=== PATIENT | female | born 1960 | race African-American/Black ===

== ENCOUNTER → 2017-01-14 | Outpatient (CLI) | payer BC ==
[2017-01-14 09:27] LABS: ABSOLUTE EOSINOPHILS # (AUTO) 0.3 10^3/uL (0.0-0.6); ABSOLUTE LYMPHOCYTES (AUTO) 2.5 10^3/uL (0.5-4.7); ABSOLUTE MONOCYTES (AUTO) 0.4 10^3/uL (0.1-1.4); ABSOLUTE NEUT (AUTO) 3.1 10^3/uL (1.7-8.2); BASOPHILS % (AUTO) 0.7 % (0-2); EOSINOPHILS % (AUTO) 4.8 % (0-6); HEMATOCRIT 36.4 % (36.0-47.0); HGB HCT DIFFERENCE -0.4; LYMPHOCYTES % (AUTO) 39.8 % (13-45); MEAN CORPUSCULAR HEMOGLOBIN 27.5 pg (27.0-33.4); MEAN CORPUSCULAR HGB CONC 33.1 g/dL (32.0-36.0); MEAN CORPUSCULAR VOLUME 83 fl (80-97); MONOCYTES % (AUTO) 5.8 % (3-13); RED BLOOD COUNT 4.38 10^6/uL (3.72-5.28); RED CELL DISTRIBUTION WIDTH 13.8 % (11.5-14.0); SEGMENTED NEUTROPHILS % (AUTO) 48.9 % (42-78); WHITE BLOOD COUNT 6.4 10^3/uL (4.0-10.5)
[2017-01-14 09:52] LABS: ALANINE AMINOTRANSFERASE 24 U/L (9-52); ALBUMIN 4.5 g/dL (3.5-5.0); ALKALINE PHOSPHATASE 97 U/L (38-126); ANION GAP 14 (5-19); ASPARTATE AMINO TRANSFERASE 25 U/L (14-36); BILIRUBIN,TOTAL 0.4 mg/dL (0.2-1.3); BLOOD UREA NITROGEN 20 mg/dL (7-20); CALCIUM 10.1 mg/dL (8.4-10.2); CARBON DIOXIDE 27 mmol/L (22-30); CHLORIDE 100 mmol/L (98-107); CHOLESTEROL 234.04 mg/dL (0-200); CREATININE RESULT 0.79 mg/dL (0.52-1.25); Direct HDL 60 mg/dL (>40); GLUCOSE 91 mg/dL (75-110); POTASSIUM 4.2 mmol/L (3.6-5.0); SODIUM 140.6 mmol/L (137-145); TOTAL PROTEIN 7.8 g/dL (6.3-8.2); TRIGLYCERIDES 102 mg/dL (<150)
[2017-01-14 10:03] LABS: DIRECT LDL 137 mg/dL (<100)
[2017-01-14 10:08] LABS: FREE T3 4.03 pg/mL (2.77-5.27)
[2017-01-14 10:22] LABS: THYROID STIMULATING HORMONE 1.99 uIU/mL (0.47-4.68)
== END ==
LOC: LAB 08:39
PROVIDERS: ATTEND Nurse Practitioner Psychiatric/Mental Health
DX: G62.9 Polyneuropathy, unspecified (principal); R63.4 Abnormal weight loss; I10 Essential (primary) hypertension
CPT/HCPCS: 36415; 80053; 80061; 83036; 84436; 84443; 84481; 85025

== ENCOUNTER 2017-02-10 10:20 | Emergency (ER) | payer BC ==
--- NOTE | 2017-02-10 11:19 | ER Document Report ---
ED Medical Screen (RME) - General Chief Complaint: Chest Pain > 30 Stated Complaint: CHEST PAIN Mode of Arrival: Ambulatory Information source: Patient TRAVEL OUTSIDE OF THE [place] IN LAST 30 DAYS: No - HPI Onset: Other - 2 DAYS Onset/Duration: Sudden Quality of pain: Sharp Severity: Moderate Associated Symptoms: Chest pain, Cough (productive). denies: Chills, Fever Exacerbated by: Coughing, Deep breathing Relieved by: Remaining still Similar symptoms previously: No Recently seen / treated by doctor: No - Related Data Smoking: Cigarettes Frequency of alcohol use: Occasional Drug Abuse: None Allergies/Adverse Reactions: No Known Allergies Allergy (Verified 07/25/16 14:44) Past Medical History - General Information source: Patient - Social History Cigarette use (# per day): Yes Chew tobacco use (# tins/day): No Frequency of alcohol use: None Drug Abuse: None - Past Medical History Cardiac Medical History: Reports: Hx Hypertension Pulmonary Medical History: Reports: Hx COPD Renal/ Medical History: Reports: Hx Kidney Stones. Denies: Hx Peritoneal Dialysis GI Medical History: Reports: Hx Gastroesophageal Reflux Disease Past Surgical History: Reports: Hx Appendectomy, Hx Hysterectomy - Immunizations Hx Diphtheria, Pertussis, Tetanus Vaccination: Yes Review of Systems - Review of Systems Constitutional: No symptoms reported EENT: No symptoms reported Cardiovascular: See HPI Respiratory: See HPI Gastrointestinal: No symptoms reported Genitourinary: No symptoms reported Female Genitourinary: No symptoms reported Musculoskeletal: See HPI Skin: No symptoms reported Neurological/Psychological: No symptoms reported Physical Exam - Vital signs Vitals: Temp Pulse Resp BP Pulse Ox 98.2 F 62 16 102/64 99 02/10/17 10:40 02/10/17 10:40 02/10/17 10:40 02/10/17 10:40 02/10/17 10:40 Interpretation: No: Tachycardic, Hypoxic, Tachypneic, Febrile Course - Vital Signs Vital signs: Temp Pulse Resp BP Pulse Ox 98.2 F 62 16 102/64 99 02/10/17 10:40 02/10/17 10:40 02/10/17 10:40 02/10/17 10:40 02/10/17 10:40
[2017-02-10] MEDS ORDERED: OXYCODONE-ACETAMINOPHEN 5-325 MG TABLET PO ONE (11:21)
[2017-02-10] MEDS ORDERED: ONDANSETRON 4 MG TAB.RAPDIS PO ONE (11:21)
[2017-02-10 12:15] LABS: ABSOLUTE BASOPHILS # (AUTO) 0.1 10^3/uL (0.0-0.2); ABSOLUTE EOSINOPHILS # (AUTO) 0.4 10^3/uL (0.0-0.6); ABSOLUTE LYMPHOCYTES (AUTO) 2.5 10^3/uL (0.5-4.7); ABSOLUTE MONOCYTES (AUTO) 0.7 10^3/uL (0.1-1.4); ABSOLUTE NEUT (AUTO) 5.5 10^3/uL (1.7-8.2); BASOPHILS % (AUTO) 0.8 % (0-2); EOSINOPHILS % (AUTO) 4.8 % (0-6); HEMATOCRIT 34.4 % (36.0-47.0); HEMOGLOBIN 11.6 g/dL (12.0-15.5); HGB HCT DIFFERENCE 0.4; LYMPHOCYTES % (AUTO) 27.5 % (13-45); MEAN CORPUSCULAR HEMOGLOBIN 27.4 pg (27.0-33.4); MEAN CORPUSCULAR HGB CONC 33.7 g/dL (32.0-36.0); MEAN CORPUSCULAR VOLUME 81 fl (80-97); MONOCYTES % (AUTO) 7.1 % (3-13); RED BLOOD COUNT 4.23 10^6/uL (3.72-5.28); SEGMENTED NEUTROPHILS % (AUTO) 59.8 % (42-78); WHITE BLOOD COUNT 9.2 10^3/uL (4.0-10.5)
[2017-02-10 12:31] LABS: ALANINE AMINOTRANSFERASE 31 U/L (9-52); ALBUMIN 4.5 g/dL (3.5-5.0); ALKALINE PHOSPHATASE 107 U/L (38-126); ANION GAP 13 (5-19); ASPARTATE AMINO TRANSFERASE 32 U/L (14-36); BILIRUBIN,DIRECT 0.3 mg/dL (0.0-0.4); BILIRUBIN,TOTAL 0.4 mg/dL (0.2-1.3); BLOOD UREA NITROGEN 26 mg/dL (7-20); CALCIUM 10.3 mg/dL (8.4-10.2); CARBON DIOXIDE 26 mmol/L (22-30); CHLORIDE 104 mmol/L (98-107); CREATINE KINASE 102 U/L (30-135); CREATININE RESULT 0.88 mg/dL (0.52-1.25); GLUCOSE 84 mg/dL (75-110); POTASSIUM 4.4 mmol/L (3.6-5.0); SODIUM 142.7 mmol/L (137-145); TOTAL PROTEIN 7.7 g/dL (6.3-8.2)
[2017-02-10 12:42] LABS: CREATINE KINASE MB 0.72 ng/mL (<4.55); TROPONIN I < 0.012 ng/mL
--- NOTE | 2017-02-10 12:51 | EKG REPORT ---
SEVERITY:- NORMAL ECG - SINUS RHYTHM : Confirmed by: Kimberly Chinchilla MD 10-Feb-2017 12:51:11
[2017-02-10] MEDS ORDERED: PREDNISONE 20 MG TABLET PO ONE (15:32)
[2017-02-10] MEDS ORDERED: IPRATROPIUM/ALBUTEROL 0.5-2.5 MG/3 ML AMPUL NEB ONE (15:32)
--- NOTE | 2017-02-10 15:32 | ER Document Report ---
ED Cardiac - General Time seen by provider: 15:30 Mode of Arrival: Ambulatory Information source: Patient TRAVEL OUTSIDE OF THE [place] IN LAST 30 DAYS: No - HPI Patient complains to provider of: Chest pain Associated symptoms: Other - See above <MARCUS SUAREZ - Last Filed: 02/10/17 16:14> <KEL WASSERMAN - Last Filed: 02/10/17 19:49> - General Chief Complaint: Chest Pain > 30 Stated Complaint: CHEST PAIN Notes: Patient is a 56 year old female who presents to the emergency department complaining of chest pain onset 2 days ago. Patient reports she has been coughing a lot for the past 2 days and reports pain in her lower chest that radiates around to her back. Patient states the pain occurs secondary to the cough as well as sneezing, or blowing her nose. Pain is also exacerbated by moving. Patient states the cough is productive and that she has stopped smoking since onset. (MARCUS SUAREZ) - Related Data Allergies/Adverse Reactions: No Known Allergies Allergy (Verified 07/25/16 14:44) Past Medical History - General Information source: Patient - Social History Smoking Status: Current Every Day Smoker Cigarette use (# per day): Yes Chew tobacco use (# tins/day): No Frequency of alcohol use: None Drug Abuse: None Family History: Reviewed & Not Pertinent, DM, Hypertension Patient has suicidal ideation: No Patient has homicidal ideation: No - Past Medical History Cardiac Medical History: Reports: Hx Hypertension Pulmonary Medical History: Reports: Hx COPD Renal/ Medical History: Reports: Hx Kidney Stones GI Medical History: Reports: Hx Gastroesophageal Reflux Disease Past Surgical History: Reports: Hx Appendectomy, Hx Hysterectomy - Immunizations Hx Diphtheria, Pertussis, Tetanus Vaccination: Yes Hx Pneumococcal Vaccination: 11/22/14 <MARCUS SUAREZ - Last Filed: 02/10/17 16:14> Review of Systems - Review of Systems Constitutional: No symptoms reported EENT: No symptoms reported Cardiovascular: See HPI, Chest pain Respiratory: See HPI, Cough, Sputum Gastrointestinal: No symptoms reported Genitourinary: No symptoms reported Female Genitourinary: No symptoms reported Musculoskeletal: No symptoms reported Skin: No symptoms reported Hematologic/Lymphatic: No symptoms reported Neurological/Psychological: No symptoms reported -: Yes All other systems reviewed and negative <MARCUS SUAREZ - Last Filed: 02/10/17 16:14> Physical Exam - Vital signs Interpretation: Normal - General General appearance: Appears well, Alert - HEENT Head: Normocephalic, Atraumatic - Respiratory Respiratory status: No respiratory distress Chest status: Tender - Reproducable anterior chest wall tenderness with palpation Breath sounds: Wheezing - Fine wheeze with forced expiration Chest palpation: Normal - Cardiovascular Rhythm: Regular Heart sounds: Normal auscultation Murmur: No - Back Back: Normal, Nontender - Extremities General upper extremity: Normal inspection General lower extremity: Normal inspection - Neurological Neuro grossly intact: Yes Cognition: Normal Orientation: AAOx4 Ashley Coma Scale Eye Opening: Spontaneous [place] Coma Scale Verbal: Oriented [place] Coma Scale Motor: Obeys Commands [place] Coma Scale Total: 15 Speech: Normal - Psychological Associated symptoms: Normal affect, Normal mood - Skin Skin Temperature: Warm Skin Moisture: Dry Skin Color: Normal <MARCUS SUAREZ - Last Filed: 02/10/17 16:14> Course - Laboratory Result Diagrams: 02/10/17 11:48 02/10/17 11:48 <MARCUS SUAREZ - Last Filed: 02/10/17 16:14> - Laboratory Result Diagrams: 02/10/17 11:48 02/10/17 11:48 - Diagnostic Test Radiology reviewed: Reports reviewed - EKG Interpretation by Ma EKG shows normal: Sinus rhythm Rate: Normal Rhythm: NSR <KEL WASSERMAN - Last Filed: 02/10/17 19:49> - Re-evaluation Re-evalutation: 02/10/17 Patient with reproducible chest wall pain. Feels better after medications and nebulizer. No evidence for coronary artery disease. Patient will be discharged home with inhaler, steroids, and azithromycin. She is to follow-up with her doctor. Return if any worsening or concerning symptoms. Patient was ambulated in the emergency department and maintained her oxygen saturation. Appears well. Stable for discharge. (KEL WASSERMAN) - Vital Signs Vital signs: Temp Pulse Resp BP Pulse Ox 97.9 F 52 L 16 138/78 H 100 02/10/17 17:52 02/10/17 17:52 02/10/17 10:40 02/10/17 17:52 02/10/17 17:52 - Laboratory Laboratory results interpreted by me: 02/10/17 02/10/17 11:48 11:48 Hgb 11.6 L Hct 34.4 L BUN 26 H Calcium 10.3 H Discharge <MARCUS SUAREZ - Last Filed: 02/10/17 16:14> <KEL WASSERMAN - Last Filed: 02/10/17 19:49> - Discharge Clinical Impression: Bronchospasm with bronchitis, acute, Chest wall pain Condition: Stable Disposition: HOME, SELF-CARE Instructions: Bronchitis With Bronchospasm (Wheezing) ([facility]) Prescriptions: Albuterol Sulfate [Proair HFA Inhalation Aerosol 8.5 gm MDI] 2 puff IH Q4H PRN # 1 mdi PRN Reason: Azithromycin [Zithromax 250 mg Tablet] 250 mg PO ASDIR PRN #6 tablet PRN Reason: Oxycodone HCl/Acetaminophen [Percocet 5-325 mg Tablet] 1 - 2 tab PO Q4H PRN #15 tablet PRN Reason: Prednisone 40 mg PO DAILY #6 tablet Forms: Smoking Cessation Education, Return to Work Referrals: MICKEY PANCHAL MD [Primary Care Provider] - Follow up in 3-5 days Scribe Attestation: 02/10/17 19:49 I personally performed the services described in the documentation, reviewed and edited the documentation which was dictated to the scribe in my presence, and it accurately records my words and actions. (KEL WASSERMAN) Scribe Documentation - Scribe Written by Kennethe:: david Maravilla, 02/10/17, 1887 acting as scribe for :: Rocio <MARCUS SUAREZ - Last Filed: 02/10/17 16:14>
[2017-02-10 18:03] VITALS: BP 138/78
== END 2017-02-10 18:00 | disposition home or self-care (01) ==
LOC: ER 10:20
DX: J44.0 Chronic obstructive pulmonary disease with (acute) lower respiratory infection (principal); J20.9 Acute bronchitis, unspecified; R07.89 Other chest pain; R05 Cough; I10 Essential (primary) hypertension; F17.210 Nicotine dependence, cigarettes, uncomplicated
CPT/HCPCS: 93005; 94640; 99285; 36415; 82553; 82550; 85025; 80053; 84484; 71020; 93010; S0119; J7512; J7620

== ENCOUNTER 2017-08-20 09:13 | Emergency (ER) | payer BC ==
--- NOTE | 2017-08-20 09:39 | ER Document Report ---
ED Medical Screen (RME) - General Chief Complaint: Abdominal Pain Stated Complaint: ABDOMINAL PAIN Time Seen by Provider: 08/20/17 09:37 Notes: Patient states she occasionally has constipation but "never this bad". She has been constipated for several days and now has severe diffuse abdominal pain. TRAVEL OUTSIDE OF THE [place] IN LAST 30 DAYS: No - Related Data Allergies/Adverse Reactions: No Known Allergies Allergy (Verified 08/20/17 09:25) Past Medical History - Social History Frequency of alcohol use: Occasional Drug Abuse: Marijuana - Past Medical History Cardiac Medical History: Reports: Hx Hypertension Pulmonary Medical History: Reports: Hx COPD Renal/ Medical History: Reports: Hx Kidney Stones. Denies: Hx Peritoneal Dialysis GI Medical History: Reports: Hx Gastroesophageal Reflux Disease Past Surgical History: Reports: Hx Appendectomy, Hx Hysterectomy - Immunizations Hx Diphtheria, Pertussis, Tetanus Vaccination: Yes History of Influenza Vaccine for 08/2017 - 01/2018 Season: No Physical Exam - Vital signs Vitals: Temp Pulse Resp BP 97.8 F 96 22 H 150/71 H 08/20/17 09:22 08/20/17 09:22 08/20/17 09:22 08/20/17 09:22 Course - Vital Signs Vital signs: Temp Pulse Resp BP Pulse Ox 97.8 F 96 22 H 150/71 H 08/20/17 09:22 08/20/17 09:22 08/20/17 09:22 08/20/17 09:22
[2017-08-20 10:13] LABS: ABSOLUTE BASOPHILS # (AUTO) 0.1 10^3/uL (0.0-0.2); ABSOLUTE EOSINOPHILS # (AUTO) 0.3 10^3/uL (0.0-0.6); ABSOLUTE LYMPHOCYTES (AUTO) 4.1 10^3/uL (0.5-4.7); ABSOLUTE MONOCYTES (AUTO) 0.9 10^3/uL (0.1-1.4); ABSOLUTE NEUT (AUTO) 13.1 10^3/uL (1.7-8.2); BASOPHILS % (AUTO) 0.4 % (0-2); EOSINOPHILS % (AUTO) 1.6 % (0-6); HEMATOCRIT 40.2 % (36.0-47.0); HEMOGLOBIN 13.2 g/dL (12.0-15.5); HGB HCT DIFFERENCE -0.6; LYMPHOCYTES % (AUTO) 22.1 % (13-45); MEAN CORPUSCULAR HEMOGLOBIN 27.2 pg (27.0-33.4); MEAN CORPUSCULAR HGB CONC 32.7 g/dL (32.0-36.0); MEAN CORPUSCULAR VOLUME 83 fl (80-97); MONOCYTES % (AUTO) 4.8 % (3-13); RED BLOOD COUNT 4.83 10^6/uL (3.72-5.28); SEGMENTED NEUTROPHILS % (AUTO) 71.1 % (42-78); WHITE BLOOD COUNT 18.5 10^3/uL (4.0-10.5)
--- NOTE | 2017-08-20 10:28 | RADIOLOGY REPORT (SQ) ---
EXAM DESCRIPTION: ACUTE ABDOMEN SERIES COMPLETED DATE/TIME: 08/20/2017 10:18 am REASON FOR STUDY: severe abd pain COMPARISON: None. NUMBER OF VIEWS: Three views. TECHNIQUE: Frontal chest, supine abdomen and upright abdomen radiographic images acquired. LIMITATIONS: None. FINDINGS: CHEST: Lungs clear of infiltrates. FREE AIR: None. No abnormal gas collections. BOWEL GAS PATTERN: Nonobstructive pattern. There is a large amount fecal material in the colon. CALCIFICATIONS: No suspicious calcifications. HARDWARE: None in the abdomen. SOFT TISSUES: No gross mass or suggestion of organomegaly. BONES: No acute fracture. No worrisome bone lesions. OTHER: No other significant finding. IMPRESSION: Constipation. No acute abnormality is seen in the abdomen. TECHNICAL DOCUMENTATION: JOB ID: [id number] [employer]- All Rights Reserved
[2017-08-20 10:33] LABS: ALANINE AMINOTRANSFERASE 43 U/L (9-52); ALBUMIN 5.2 g/dL (3.5-5.0); ALKALINE PHOSPHATASE 142 U/L (38-126); ANION GAP 17 (5-19); ASPARTATE AMINO TRANSFERASE 34 U/L (14-36); BILIRUBIN,DIRECT 0.5 mg/dL (0.0-0.4); BILIRUBIN,TOTAL 0.6 mg/dL (0.2-1.3); BLOOD UREA NITROGEN 21 mg/dL (7-20); CALCIUM 10.8 mg/dL (8.4-10.2); CARBON DIOXIDE 26 mmol/L (22-30); CHLORIDE 101 mmol/L (98-107); CREATININE RESULT 0.81 mg/dL (0.52-1.25); GLUCOSE 115 mg/dL (75-110); POTASSIUM 4.9 mmol/L (3.6-5.0); TOTAL PROTEIN 8.7 g/dL (6.3-8.2)
[2017-08-20] MEDS ORDERED: ONDANSETRON HCL INJ/PF 4 MG/2 ML SDV IV ONE (11:22)
[2017-08-20] MEDS ORDERED: MORPHINE SULFATE 10 MG/ML INJ IV ONE (11:22)
[2017-08-20] MEDS ORDERED: NORMAL SALINE 1000 ML 1,000 ML IV ONE (11:22)
--- NOTE | 2017-08-20 11:22 | ER Document Report ---
ED GI/ <CUBA MELISSA - Last Filed: 08/20/17 14:50> - General Mode of Arrival: Ambulatory Information source: Patient TRAVEL OUTSIDE OF THE [place] IN LAST 30 DAYS: No <DANYA FAUSTIN - Last Filed: 08/20/17 15:27> - General Chief Complaint: Abdominal Pain Stated Complaint: ABDOMINAL PAIN Time Seen by Provider: 08/20/17 09:37 Notes: Patient is a 56-year-old female who presents to the emergency department today with complaints of abdominal pain. Patient states she has also been constipated. Patient states she has had frequent constipation in the past but since her colonoscopy in November she has not really had a problem with constipation. Patient states she has had constipation and abdominal pain for the last 5 days. (DANYA FAUSTIN) - Related Data Allergies/Adverse Reactions: No Known Allergies Allergy (Verified 08/20/17 09:25) Home Medications: Current Home Medications Olmesartan Medoxomil [Benicar] 20 mg PO DAILY 08/20/17 [History] Past Medical History - General Information source: Patient - Social History Smoking Status: Current Every Day Smoker Cigarette use (# per day): Yes Frequency of alcohol use: Occasional Lives with: Family Family History: Reviewed & Not Pertinent, DM, Hypertension - Past Medical History Cardiac Medical History: Reports: Hx Hypertension Pulmonary Medical History: Reports: Hx COPD Renal/ Medical History: Reports: Hx Kidney Stones GI Medical History: Reports: Hx Gastroesophageal Reflux Disease Past Surgical History: Reports: Hx Appendectomy, Hx Hysterectomy - Immunizations Hx Diphtheria, Pertussis, Tetanus Vaccination: Yes Hx Pneumococcal Vaccination: 11/22/14 <DANYA FAUSTIN - Last Filed: 08/20/17 15:27> Review of Systems - Review of Systems Constitutional: No symptoms reported EENT: No symptoms reported Cardiovascular: No symptoms reported Respiratory: No symptoms reported Gastrointestinal: See HPI, Abdominal pain, Constipation Genitourinary: No symptoms reported Female Genitourinary: No symptoms reported Musculoskeletal: No symptoms reported Skin: No symptoms reported Hematologic/Lymphatic: No symptoms reported Neurological/Psychological: No symptoms reported -: Yes All other systems reviewed and negative <DANYA FAUSTIN - Last Filed: 08/20/17 15:27> Physical Exam <CUBA MELISSA - Last Filed: 08/20/17 14:50> <DANYA FAUSTIN - Last Filed: 08/20/17 15:27> - Vital signs Vitals: Temp Pulse Resp BP 97.8 F 96 22 H 150/71 H 08/20/17 09:22 08/20/17 09:22 08/20/17 09:22 08/20/17 09:22 - Notes Notes: Physical Exam: General: Alert, appears uncomfortable. HEENT: Normocephalic. Atraumatic. PERRL. Extraocular movements intact. Oropharynx clear. Neck: Supple. Non-tender. Respiratory: No respiratory distress. Clear and equal breath sounds bilaterally. Cardiovascular: Regular rate and rhythm. Abdominal: LLQ and RLQ tenderness with palpation, worse in the LLQ. No distension. Normal Bowel Sounds. Back: Non-tender. No deformity or step off. Extremities: Moves all four extremities. Upper extremities: Normal inspection. Normal ROM. Lower extremities: Normal inspection. No edema. Normal ROM. Neurological: Normal cognition. AAOx4. Normal speech. Psychological: Normal affect. Normal Mood. Skin: Warm. Dry. Normal color. (DANYA FAUSTIN) Course - Laboratory Result Diagrams: 08/20/17 09:50 08/20/17 09:50 - Diagnostic Test Radiology reviewed: Image reviewed, Reports reviewed - Acute abdominal series shows considerable constipation. CT scan with IV contrast shows again the considerable constipation without any inflammatory changes. There is nonobstructive left renal calculus. <CUBA MELISSA - Last Filed: 08/20/17 14:50> - Laboratory Result Diagrams: 08/20/17 09:50 08/20/17 09:50 <DANYA FAUSTIN - Last Filed: 08/20/17 15:27> - Re-evaluation Re-evalutation: 08/20/17 14:50 The patient had good results from the enema and does feel better. (CUBA MELISSA) - Vital Signs Vital signs: Temp Pulse Resp BP Pulse Ox 98.3 F 54 L 16 152/74 H 99 08/20/17 15:09 08/20/17 15:09 08/20/17 15:09 08/20/17 15:09 08/20/17 15:09 - Laboratory Laboratory results interpreted by me: 08/20/17 08/20/17 09:50 09:50 WBC 18.5 H Absolute Neutrophils 13.1 H BUN 21 H Glucose 115 H Calcium 10.8 H Direct Bilirubin 0.5 H Alkaline Phosphatase 142 H Total Protein 8.7 H Albumin 5.2 H Discharge <SHINCUBA Deleon - Last Filed: 08/20/17 14:50> <DANYA FAUSTIN - Last Filed: 08/20/17 15:27> - Discharge Clinical Impression: Constipation Qualifiers: Constipation type: unspecified constipation type Qualified Code(s): K59.00 - Constipation, unspecified Abdominal pain Qualifiers: Abdominal location: left lower quadrant Qualified Code(s): R10.32 - Left lower quadrant pain Condition: Stable Disposition: HOME, SELF-CARE Additional Instructions: Abdominal Pain There are many causes of abdominal pain. Pain can mean a serious problem requiring surgery (such as appendicitis). It can also be an innocent problem that goes away on its own (such as a viral infection). Often, time must pass to determine the cause of pain. The physician does not feel that hospitalization is necessary, at present. Things may change within the next 24 hours. Call the doctor or come back for re- examination if any problems occur, such as: (1) Pain that becomes more severe, steady, or becomes concentrated in one specific area. Also, pain that is more severe with movement or coughing. (2) Vomiting that persists or becomes more frequent. (3) Blood in the vomitus, urine, or bowel movements. Blood in the stool may have a tarry or black appearance. (4) Shaking chills or fever greater than 100 degrees F. (5) The abdomen becomes more distended or swollen. (6) Bowel movements cease. (7) Failure to improve as expected. Constipation Constipation is a common problem. It is especially likely as you get older. Constipation is a common cause of abdominal pain, but sometimes causes no symptoms at all. Causes of constipation include certain medications, dehydration, diets, inactivity, and low-fiber intake. Rarely, it can be a symptom of underlying disease. The physician has evaluated you for this. Avoid constipation by eating a diet high in fiber, fruits, and vegetables. Drink plenty of liquids. Get regular exercise. If possible, avoid constipating medicines like narcotic pain medication. Some vitamin tablets can cause constipation. Stool softeners may be needed for difficult cases. An excellent stool softener is Konsyl which is available at [employer], and [employer] drug [employer]. Just add a teaspoon to a glass of pineapple or orange juice daily or twice a day if needed. Laxatives are useful for occasional constipation. You should use them only when necessary. Too-frequent use can make your bowels dependent on them. Some over the counter laxatives available without prescription are: Milk of Magnesia, 1-2 tablespoons twice a day Dulcolax, 5 mg pill or 10 mg suppository. Citrate of Magnesia, 4-5 ounces a day for a day or two For acute constipation, Fleet's Enemas and Dulcolax suppositories are helpful. Chronic, watermelon inspector use of laxatives or enemas is not a good idea. Your bowel may become dependant on them. You do not need to have a bowel movement every day. Many people do fine with a bowel movement every three or four days. You should call your doctor or return for re-evaluation if you pass blood in the stool, or if you develop fever or increasing abdominal pain. Referrals: THALIA KHANNA MD [Primary Care Provider] - Follow up as needed Scribe Attestation: 08/20/17 12:40 I personally performed the services described in the documentation, reviewed and edited the documentation which was dictated to the scribe in my presence, and it accurately records my words and actions. (CUBA MELISSA) Scribe Documentation - Scribe Written by Tien:: Tien Bustillos, 08/20/2017 1527 acting as scribe for :: Shin <DANYA FAUSTIN - Last Filed: 08/20/17 15:27>
--- NOTE | 2017-08-20 12:24 | RADIOLOGY REPORT (SQ) ---
EXAM DESCRIPTION: CT ABD/PELVIS WITH IV ONLY COMPLETED DATE/TIME: 08/20/2017 12:02 pm REASON FOR STUDY: constipation, LLQ pain, leukocytosis COMPARISON: None. TECHNIQUE: CT scan of the abdomen and pelvis performed using helical scanning technique with dynamic intravenous contrast injection. No oral contrast. Images reviewed with lung, soft tissue, and bone windows. Reconstructed coronal and sagittal MPR images reviewed. Delayed images for evaluation of the urinary system also acquired. All images stored on PACS. All CT scanners at this facility use dose modulation, iterative reconstruction, and/or weight based d osing when appropriate to reduce radiation dose to as low as reasonably achievable ([facility]ARA). [facility]: Dose Right [facility]: CareDose [facility]: Dose Right [facility]: Teradose 4D [facility]: kompany CONTRAST TYPE AND DOSE: contrast/concentration: Isovue 370.00 mg/ml; Total Contrast Delivered: 69.0 ml; Total Saline Delivered: 47.1 ml RENAL FUNCTION: BUN 21 CREATININE 0.8 RADIATION DOSE: Up-to-date CT equipment and radiation dose reduction techniques were employed. CTDIv ol: 6.2 - 8.7 mGy. DLP: 771 mGy-cm.. LIMITATIONS: None. FINDINGS: LOWER CHEST: No significant findings. No nodules or infiltrates. LIVER: Normal size. No masses. No dilated ducts. SPLEEN: Normal size. No focal lesions. PANCREAS: No masses. No significant calcifications. No adjacent inflammation or peripancreatic fluid collections. Pancreatic duct not dilated. GALLBLADDER: No identified stones by CT criteria. No inflammatory changes to suggest cholecystitis. ADRENAL GLANDS: No significant masses or asymmetry. RIGHT KIDNEY AND URETER: No solid masses. No significant calcifications. No hydronephrosis or hyd roureter. LEFT KIDNEY AND URETER: No solid masses. 1 mm renal calculus. No hydronephrosis or hydroureter. AORTA AND VESSELS: No aneurysm. No dissection. Renal arteries, SMA, celiac without stenosis. RETROPERITONEUM: No retroperitoneal adenopathy, hemorrhage or masses. BOWEL AND PERITONEAL CAVITY: Abundant fecal material throughout nondilated colon. No masses or infla mmatory changes. No free fluid or peritoneal masses. APPENDIX: Surgically absent. PELVIS: No mass. No free fluid. Normal bladder. ABDOMINAL WALL: No masses. No hernias. BONES: No significant or acute findings. OTHER: No other significant finding. IMPRESSION: 1. Fecal retention. No evidence of obstruction. 2. Small nonobstructing left renal calculus. TECHNICAL DOCUMENTATION: JOB ID: [id number] Quality ID # [id number]: Final reports with documentation of one or more dose reduction techniques (e.g., Au tomated exposure control, adjustment of the mA and/or kV according to patient size, use of iterative reconstruction technique) 2010 [employer]- All Rights Reserved
[2017-08-20] MEDS ORDERED: MINERAL OIL 30 ML UDCUP PR ONE (12:38)
[2017-08-20] MEDS ORDERED: MAGNESIUM CITRATE 296 ML BOTTLE PO ONE (14:48)
[2017-08-20 15:17] VITALS: BP 152/74
== END 2017-08-20 15:27 | disposition home or self-care (01) ==
LOC: ER 09:13
DX: R10.32 Left lower quadrant pain (principal); K59.00 Constipation, unspecified; Z79.899 Other long term (current) drug therapy; F17.210 Nicotine dependence, cigarettes, uncomplicated
CPT/HCPCS: 99284; 96361; 96374; 96375; 36415; 85025; 80053; 74022; 74177; J3490 ×2; J2270; J2405; J7030

== ENCOUNTER 2018-07-15 06:21 | Emergency (ER) | payer SELFPAY ==
--- NOTE | 2018-07-15 07:30 | ER Document Report ---
HPI - HPI Patient complains to provider of: dysuria Onset: Other - few days Pain Level: 4 Context: 57 yo female c/o dysuria, urethral pain, no vaginal discharge, urgency and frequency. No fever, vomiting or flank pain. Associated Symptoms: None Exacerbated by: Other - see above Relieved by: Denies - ROS ROS below otherwise negative: Yes Systems Reviewed and Negative: Yes All other systems reviewed and negative - REPRODUCTIVE LMP: na Reproductive: DENIES: : - DERM Skin Color: Normal Past Medical History - General Information source: Patient - Social History Smoking Status: Current Every Day Smoker Chew tobacco use (# tins/day): No Frequency of alcohol use: None Drug Abuse: None Lives with: Family Family History: DM, Hypertension Patient has suicidal ideation: No Patient has homicidal ideation: No - Past Medical History Cardiac Medical History: Reports: Hx Hypertension Pulmonary Medical History: Reports: Hx COPD Renal/ Medical History: Reports: Hx Kidney Stones. Denies: Hx Peritoneal Dialysis GI Medical History: Reports: Hx Gastroesophageal Reflux Disease Past Surgical History: Reports: Hx Appendectomy, Hx Hysterectomy - Immunizations Hx Diphtheria, Pertussis, Tetanus Vaccination: Yes Hx Pneumococcal Vaccination: 11/22/14 Vertical Provider Document - CONSTITUTIONAL Agree With Documented VS: Yes Exam Limitations: No Limitations General Appearance: No Apparent Distress - INFECTION CONTROL TRAVEL OUTSIDE OF THE [place] IN LAST 30 DAYS: No - NECK Neck: Supple - RESPIRATORY Respiratory: Breath Sounds Normal, No Respiratory Distress - CARDIOVASCULAR Cardiovascular: Regular Rate, Regular Rhythm - GI/ABDOMEN Gastrointestinal: Abdomen Soft, Abdomen Non-Tender, No Organomegaly - REPRODUCTIVE Female Genitalia: Normal Inspection - she wanted me to check her urethra area due to the extreme pain - NEURO Level of Consciousness: Awake - DERM Integumentary: No Rash Course - Vital Signs Vital signs: Temp Pulse Resp BP Pulse Ox 97.4 F 57 L 20 150/74 H 100 07/15/18 06:26 07/15/18 06:26 07/15/18 06:26 07/15/18 06:26 07/15/18 06:26 Discharge - Discharge Clinical Impression: Urethritis, Urinary tract infection Condition: Good Disposition: HOME, SELF-CARE Instructions: Acetaminophen, Nitrofurantoin ([facility]), Topical Lidocaine ([facility]) Additional Instructions: Plenty of fluids Topical lidocaine to numb the area Macrobid twice a day for a week for urinary tract infection Urine culture is pending Return to the emergency room if worse Prescriptions: Nitrofurantoin/Nitrofuran Mac [Macrobid 100 mg Capsule] 100 mg PO BID #14 capsule Forms: Return to Work Referrals: THALIA KHANNA MD [Primary Care Provider] - Follow up as needed
[2018-07-15] MEDS ORDERED: ACETAMINOPHEN 325 MG TABLET PO ONE (07:34)
[2018-07-15 08:08] LABS: APPEARANCE,URINE CLEAR; BILIRUBIN,URINE NEGATIVE (NEGATIVE); COLOR,URINE YELLOW; GLUCOSE, URINE NEGATIVE (NEGATIVE); KETONES,URINE NEGATIVE (NEGATIVE); LEUKOCYTE ESTERASE,URINE MODERATE (NEGATIVE); NITRITE,URINE NEGATIVE (NEGATIVE); PROTEIN,URINE NEGATIVE (NEGATIVE); URINE SPECIFIC GRAVITY 1.023; UROBILINOGEN,URINE NEGATIVE mg/dL (<2.0)
[2018-07-15] MEDS ORDERED: ONDANSETRON 4 MG TAB.RAPDIS PO ONE (08:44)
[2018-07-15] MEDS ORDERED: PHENAZOPYRIDINE HCL 200 MG TABLET PO ONE (08:44)
[2018-07-15] MEDS ORDERED: LIDOCAINE 2% JELLY 5 ML TUBE TOP ONE (09:25)
[2018-07-15] MEDS ORDERED: NITROFURANTOIN MONOHYD/M-CRYST 100 MG CAPSULE PO ONE (09:27)
[2018-07-15 09:53] VITALS: BP 173/73
== END 2018-07-15 10:06 | disposition home or self-care (01) ==
LOC: ER 06:21
DX: N34.2 Other urethritis (principal); N39.0 Urinary tract infection, site not specified; I10 Essential (primary) hypertension; J44.9 Chronic obstructive pulmonary disease, unspecified; F17.200 Nicotine dependence, unspecified, uncomplicated
CPT/HCPCS: 99283; 87086; 87088; 81001; 87186; S0119; J3490; J8499

== ENCOUNTER 2018-10-26 08:44 | Emergency (ER) | payer SELFPAY ==
[2018-10-26 08:49] VITALS: BP 148/87
[2018-10-26] MEDS ORDERED: IPRATROPIUM/ALBUTEROL 0.5-2.5 MG/3 ML AMPUL NEB ONE (09:14)
[2018-10-26] MEDS ORDERED: ALBUTEROL SULFATE HFA (90 MCG/PUFF) 8 GM MDI (1 MDI/ER DISP) IH ONE (09:15)
--- NOTE | 2018-10-26 09:17 | ER Document Report ---
ED General - General Chief Complaint: Productive Cough Stated Complaint: COUGH Time Seen by Provider: 10/26/18 08:57 Notes: Patient is a 57-year-old female with history of COPD that presents to the emergency department for chief complaint of cough. Patient states that she has been having a cough and body aches for approximately 4 days. Today became more productive with a dark yellow sputum, she has been taking [id number] NyQuil, Tylenol Cold and flu. She states her one niece has been sick with similar symptoms. She denies having any fevers, chills, night sweats. She also denies feeling short of breath or having any chest pain associated with her cough. She does have a history of COPD, but is not currently on any medications, stating that she could not afford the inhalers that were previously prescribed. Past Medical History: COPD Past Surgical History: Hysterectomy, appendectomy Social History: Admits to smoking cigarettes daily, denies alcohol or drug use. Family History: Reviewed and noncontributory for presenting illness Allergies: Reviewed, see documented allergy list. REVIEW OF SYSTEMS: Other than noted above, the 12 point review of systems was reviewed with the patient and were negative, all pertinent findings are included in the HPI. PHYSICAL EXAMINATION: Vital signs reviewed, nursing noted reviewed. GENERAL: Well-appearing, well-nourished and in no acute distress. HEAD: Atraumatic, normocephalic. EYES: Eyes appear normal, extraocular movements intact, sclera anicteric, conjunctiva are normal. ENT: nares patent, oropharynx clear without exudates. Moist mucous membranes. NECK: Normal range of motion, supple without lymphadenopathy LUNGS: Diffuse rhonchi noted throughout all lung alva, no acute respiratory distress HEART: Regular rate and rhythm without murmurs ABDOMEN: Soft, nontender, normoactive bowel sounds. No rebound, guarding, or rigidity. No masses appreciated. EXTREMITIES: Nontender, good range of motion, no pitting or edema. NEUROLOGICAL: No focal neurological deficits. Moves all extremities spontaneously Motor and sensory grossly intact on exam. PSYCH: Normal mood, normal affect. SKIN: Warm, Dry, normal turgor, no rashes or lesions noted on exposed skin TRAVEL OUTSIDE OF THE [place] IN LAST 30 DAYS: No - Related Data Allergies/Adverse Reactions: No Known Allergies Allergy (Verified 10/26/18 08:45) Past Medical History - Social History Smoking Status: Current Some Day Smoker Chew tobacco use (# tins/day): No Frequency of alcohol use: Rare Drug Abuse: Marijuana Family History: DM, Hypertension Patient has suicidal ideation: No Patient has homicidal ideation: No - Past Medical History Cardiac Medical History: Reports: Hx Hypertension Pulmonary Medical History: Reports: Hx COPD Renal/ Medical History: Reports: Hx Kidney Stones. Denies: Hx Peritoneal Dialysis GI Medical History: Reports: Hx Gastroesophageal Reflux Disease Past Surgical History: Reports: Hx Appendectomy, Hx Hysterectomy - Immunizations Hx Diphtheria, Pertussis, Tetanus Vaccination: Yes Hx Pneumococcal Vaccination: 11/22/14 Physical Exam - Vital signs Vitals: Temp Pulse Resp BP Pulse Ox 98.6 F 62 16 148/87 H 97 10/26/18 08:48 10/26/18 08:48 10/26/18 08:48 10/26/18 08:48 10/26/18 08:48 Course - Re-evaluation Re-evalutation: Patient seen and examined vital signs reviewed. Patient was evaluated and treated as appropriate for the patient's presenting symptoms and complaint, with consideration of any critical or life threatening conditions that may be associated with their obtained history and exam as noted above. Patient was treated with DuoNeb breathing treatment, will dispense patient home with an albuterol inhaler with a spacer as well, chest x-ray obtained, and reviewed, no evidence of acute infiltrate. The patient was re-evaluated and was stable and improved Evaluation was most consistent with acute bronchitis, with bronchospasm Plan of care was discussed with the patient at this point, after careful consideration I feel that that patient can be discharged from the emergency department, the patient was educated treatments and reasons to return to the emergency department based on their presumed diagnosis as noted above, they were advised to followup with a primary care physician in 2-3 days. Patient was agreeable to plan of care. *Note is created using voice recognition software and may contain spelling, syntax or grammatical errors. - Vital Signs Vital signs: Temp Pulse Resp BP Pulse Ox 98.6 F 62 16 148/87 H 97 10/26/18 08:48 10/26/18 08:48 10/26/18 08:48 10/26/18 08:48 10/26/18 08:48 Discharge - Discharge Clinical Impression: Acute bronchitis Qualifiers: Bronchitis organism: unspecified organism Qualified Code(s): J20.9 - Acute bronchitis, unspecified Condition: Stable Disposition: ADMITTED INPATIENT Instructions: Bronchitis With Bronchospasm (Wheezing) ([facility]) Additional Instructions: Please use the albuterol inhaler, 2 puffs 4 times daily for the next 3-5 days, then every 4 hours as needed. Take the steroid as prescribed. If you have worsening symptoms, if your cough is not improving over the next 7 days, or he feels short of breath or have any chest pain. Otherwise please follow-up with a primary care physician in 3-5 days, you can continue the gwvz-dbx-[id number] medications as well to help alleviate some of your symptoms. Prescriptions: Prednisone [Deltasone 20 mg Tablet] 2 tab PO DAILY 5 Days #10 tablet Referrals: JASWINDER CABRERA MD [COMMUNITY BASED STAFF] - Follow up in 3-5 days (primary care ) [facility] [Provider Group] - Follow up in 3-5 days
--- NOTE | 2018-10-26 09:57 | RADIOLOGY REPORT (SQ) ---
EXAM DESCRIPTION: CHEST 2 VIEWS COMPLETED DATE/TIME: 10/26/2018 9:27 am REASON FOR STUDY: cough COMPARISON: 09/04/2018, 02/10/2017 EXAM PARAMETERS: NUMBER OF VIEWS: two views TECHNIQUE: Digital Frontal and Lateral radiographic views of the chest acquired. RADIATION DOSE: NA LIMITATIONS: none FINDINGS: LUNGS AND PLEURA: No opacities, masses or pneumothorax. No pleural effusion. MEDIASTINUM AND HILAR STRUCTURES: No masses or contour abnormalities. HEART AND VASCULAR STRUCTURES: Heart normal size. No evidence for failure. BONES: No acute findings. HARDWARE: None in the chest. OTHER: No other significant finding. IMPRESSION: NO ACUTE RADIOGRAPHIC FINDING IN THE CHEST. TECHNICAL DOCUMENTATION: JOB ID: [id number] [employer]- All Rights Reserved Reading location - IP/workstation name: [email or web address]
== END 2018-10-26 10:06 | disposition home or self-care (01) ==
LOC: ER 08:44
DX: J20.9 Acute bronchitis, unspecified (principal); J44.0 Chronic obstructive pulmonary disease with (acute) lower respiratory infection; T48.906A Underdosing of unspecified agents primarily acting on the respiratory system, initial encounter; Z91.120 Patient's intentional underdosing of medication regimen due to financial hardship; Z91.14 Patient's other noncompliance with medication regimen; R05 Cough; F17.210 Nicotine dependence, cigarettes, uncomplicated; F12.10 Cannabis abuse, uncomplicated; I10 Essential (primary) hypertension
CPT/HCPCS: 94640; 99283; 71046; J3490; J7620

== ENCOUNTER 2018-11-04 08:12 | Emergency (ER) | payer SELFPAY ==
[2018-11-04] MEDS ORDERED: PSEUDOEPHEDRINE HCL 30 MG TABLET PO ONE (09:33)
[2018-11-04] MEDS ORDERED: GUAIFENESIN 600 MG TABLET.SA PO ONE (09:33)
[2018-11-04] MEDS ORDERED: LORATADINE 10 MG TABLET PO ONE (09:33)
[2018-11-04] MEDS ORDERED: IBUPROFEN 600 MG TABLET PO ONE (09:34)
--- NOTE | 2018-11-04 09:35 | ER Document Report ---
ED ENT - General Chief Complaint: Fever Stated Complaint: FLU SYMPTOMS Time Seen by Provider: 11/04/18 09:04 Mode of Arrival: Ambulatory Information source: Patient Notes: 57-year-old female presented to ED for complaint of fever cough body aches since yesterday. She states she has a history of bronchitis and was seen and treated with albuterol last week. She states that she has had fevers off and on up to 101 to 102. She denies using any Tylenol or Motrin this morning and she was afebrile during exam. Patient was alert and oriented respirations regular and unlabored speaking in full sentences walks with a even steady gait. TRAVEL OUTSIDE OF THE [place] IN LAST 30 DAYS: No - HPI Patient complains to provider of: Nose problem Onset: Yesterday Onset/Duration: Gradual Quality of pain: Achy Severity: Moderate Pain Level: 3 Context: Recent Illness Location of pain: Nose, Sinus, Throat Associated symptoms: Congestion, Cough, Fever, Runny nose, Sinus pain, Sinus drainage Similar symptoms previously: Yes Recently seen / treated by doctor: No - Related Data Allergies/Adverse Reactions: No Known Allergies Allergy (Verified 11/04/18 08:12) Past Medical History - General Information source: Patient - Social History Smoking Status: Current Every Day Smoker Cigarette use (# per day): Yes - 2 cigarettes a day Chew tobacco use (# tins/day): No Smoking Education Provided: Yes - 4 minutes Frequency of alcohol use: Social Drug Abuse: Marijuana Lives with: Family Family History: DM, Hypertension Patient has suicidal ideation: No Patient has homicidal ideation: No - Past Medical History Cardiac Medical History: Reports: Hx Hypertension Pulmonary Medical History: Reports: Hx COPD EENT Medical History: Reports: None Neurological Medical History: Reports: None Endocrine Medical History: Reports: None Renal/ Medical History: Reports: Hx Kidney Stones Malignancy Medical History: Reports: None GI Medical History: Reports: Hx Gastroesophageal Reflux Disease Musculoskeletal Medical History: Reports Hx Arthritis, Reports Hx Musculoskeletal Deformity, Reports Hx Musculoskeletal Trauma Skin Medical History: Reports None Psychiatric Medical History: Reports: Hx Depression Traumatic Medical History: Reports: None Past Surgical History: Reports: Hx Appendectomy, Hx Hysterectomy - Immunizations Hx Diphtheria, Pertussis, Tetanus Vaccination: Yes Hx Pneumococcal Vaccination: 11/22/14 Review of Systems - Review of Systems Constitutional: Chills, Fever, Recent illness EENT: Nose pain, Nose congestion, Nose discharge, Sinus pressure, Sinus discharge Cardiovascular: No symptoms reported Respiratory: Cough Gastrointestinal: No symptoms reported Genitourinary: No symptoms reported Female Genitourinary: No symptoms reported Musculoskeletal: Muscle pain, Muscle stiffness Skin: No symptoms reported Hematologic/Lymphatic: No symptoms reported Neurological/Psychological: No symptoms reported -: Yes All other systems reviewed and negative Physical Exam - Vital signs Vitals: Temp Pulse Resp BP Pulse Ox 99.4 F 63 16 141/74 H 97 11/04/18 08:15 11/04/18 08:15 11/04/18 08:15 11/04/18 08:15 11/04/18 08:15 Interpretation: Normal - General General appearance: Appears well, Alert - HEENT Head: Normocephalic, Atraumatic Eyes: Normal Pupils: PERRL Ears: Normal External canal: Normal Tympanic membrane: Normal Nasal: Purulent discharge, Swelling Mouth/Lips: Normal Mucous membranes: Normal Pharynx: Post nasal drainage - Respiratory Respiratory status: No respiratory distress Chest status: Nontender Breath sounds: Nonproductive cough Chest palpation: Normal - Cardiovascular Rhythm: Regular Heart sounds: Normal auscultation Murmur: No - Abdominal Inspection: Normal Distension: No distension Bowel sounds: Normal Tenderness: Nontender Organomegaly: No organomegaly - Back Back: Normal, Nontender - Extremities General upper extremity: Normal inspection, Nontender, Normal color, Normal ROM, Normal temperature General lower extremity: Normal inspection, Nontender, Normal color, Normal ROM, Normal temperature, Normal weight bearing. No: Kane's sign - Neurological Neuro grossly intact: Yes Cognition: Normal Orientation: AAOx4 Ashley Coma Scale Eye Opening: Spontaneous [place] Coma Scale Verbal: Oriented Ashley Coma Scale Motor: Obeys Commands Ashley Coma Scale Total: 15 Speech: Normal Motor strength normal: LUE, RUE, LLE, RLE Sensory: Normal - Psychological Associated symptoms: Normal affect, Normal mood - Skin Skin Temperature: Warm Skin Moisture: Dry Skin Color: Normal Course - Re-evaluation Re-evalutation: 11/04/18 23:29 Assessment consistent with an upper respiratory infection. Patient does have a history of COPD and continues to smoke both cigarettes and we had. Patient was given instructions concerning smoking with respiratory problems. Patient was treated with Claritin and Sudafed Mucinex and ibuprofen in the emergency room and discharged home with instructions for cough cold congestion symptoms. After performing a Medical Screening Examination, I estimate there is LOW risk for ACUTE CORONARY SYNDROME, RESPIRATORY FAILURE, SEPSIS OR MENINGITIS, thus I consider the discharge disposition reasonable. I have reevaluated this patient multiple times and no significant life threatening changes are noted. The patient and I have discussed the diagnosis and risks, and we agree with discharging home with close follow-up. We also discussed returning to the Emergency Department immediately if new or worsening symptoms occur. We have discussed the symptoms which are most concerning (e.g., changing or worsening pain, trouble swallowing or breathing, neck stiffness, fever) that necessitate immediate return. - Vital Signs Vital signs: Temp Pulse Resp BP Pulse Ox 98.6 F 55 L 18 145/82 H 99 11/04/18 10:13 11/04/18 10:13 11/04/18 10:13 11/04/18 10:13 11/04/18 10:13 - Diagnostic Test Radiology reviewed: Image reviewed, Reports reviewed Discharge - Discharge Clinical Impression: URI (upper respiratory infection) Qualifiers: URI type: unspecified URI Qualified Code(s): J06.9 - Acute upper respiratory infection, unspecified Condition: Stable Disposition: HOME, SELF-CARE Additional Instructions: UPPER RESPIRATORY ILLNESS: You have a viral infection of the respiratory passages -- a "cold." This common infection causes nasal congestion, drainage, and often sore throat and cough. It is highly contagious. The disease usually lasts about 10 to 14 days. There is no "cure" for the viral infection -- it must run its course. If there is a complication, such as bacterial infection in the nose, sinuses, middle ear, or bronchial tubes, antibiotics may be required. The antibiotics won't affect the virus. Drink plenty of fluids. A humidifier may help. An expectorant medication or decongestant may make you more comfortable. Use acetaminophen or ibuprofen for fever or aches. See the doctor if fever persists over two days, if there is any significant worsening of your symptoms, or if you simply fail to improve as expected. DECONGESTANT MEDICATION: A decongestant medicine has been suggested. Often this medicine is combined in the same tablet with an antihistamine or expectorant. This type of medicine is helpful in treating a bad cold or sinus condition, as well as in treatment of the nasal congestion of hay fever. It is not of much benefit for lung infections. Decongestant medicines are related to stimulants. They can cause an increase in blood pressure and heart rate. Persons with heart disease and high blood pressure should not take decongestants without discussing this with the physician. If you develop palpitations, chest pain, headache, or tremors, stop the medicine and consult your physician. COUGH-SUPPRESSANT & EXPECTORANT MEDICATION: You are to use a cough medication as needed for relief of symptoms. This medicine is a combination of an expectorant (to make the mucous thinner and more easily "coughed up") and a cough suppressant (to reduce the frequency of coughing). The cough-suppressant medicine is related to narcotics. You may experience mild nausea and sleepiness. Some patients who are very sensitive to narcotics may have stomach pain from this medicine. Taking the medicine with food reduces these side effects. Do not drive or work with machinery until you know how this medicine affects you. The expectorant should have no side effects. Iodine-containing expectorants (such as organidin) should not be taken by persons with active thyroid disease unless approved by your doctor. Call the doctor if you develop shortness of breath, hives, rash, itching, lightheadedness, or severe nausea and vomiting. USE OF ACETAMINOPHEN (Tylenol): Acetaminophen may be taken for pain relief or fever control. It's much safer than aspirin, offering a wider range of "safe" dosages. It is safe during . Some brand names are Tylenol, Panadol, Datril, Anacin 3, Tempra, and Liquiprin. Acetaminophen can be repeated every four hours. The following are maximum recommended dosages: >89 pounds or adults 650 mg to 900 mg Acetaminophen can be repeated every four hours. Maximum dose not to exceed 4000 mg a day. SMOKING: If you smoke, you should stop smoking. The tar and chemicals in cigarette smoke are harmful. Smoking has been shown to cause: emphysema chronic bronchitis lung cancer mouth and throat cancer stomach and pancreas cancer premature aging defects In addition, smoking increases ear and lung infections in children of smokers. You were treated with Claritin 10 mg, certified 30 mg, Mucinex 600 mg, and ibuprofen in the emergency room these are all yvdd-hny-bnjblaz medications that will help your cough cold congestion. Can also use Flonase nasal spray use according to the box instructions. Will use Chloraseptic spray for your sore throat. You can also use salt and soda solution gargles for your postnasal drip which will help to clear your throat. Salt and soda solution 1 quart of water 1 tablespoon of salt 1 teaspoon of baking soda Mixed 3 ingredients together and boil for 1 minute Placed in a covered quart jar Use 1/2 ounce of cold solution to gargle 3 times a day FOLLOW-UP CARE: If you have been referred to a physician for follow-up care, call the physicians office for an appointment as you were instructed or within the next two days. If you experience worsening or a significant change in your symptoms, notify the physician immediately or return to the Emergency Department at any time for re-evaluation. Forms: Elevated Blood Pressure, Smoking Cessation Education, Return to Work
--- NOTE | 2018-11-04 10:08 | RADIOLOGY REPORT (SQ) ---
EXAM DESCRIPTION: CHEST 2 VIEWS COMPLETED DATE/TIME: 11/04/2018 9:48 am REASON FOR STUDY: Cough congestion and fever COMPARISON: Chest films 10/26/2018, 09/04/2018, 02/10/2017, 03/08/2013 EXAM PARAMETERS: NUMBER OF VIEWS: two views TECHNIQUE: Digital Frontal and Lateral radiographic views of the chest acquired. RADIATION DOSE: NA LIMITATIONS: none FINDINGS: LUNGS AND PLEURA: No opacities, masses or pneumothorax. No pleural effusion. MEDIASTINUM AND HILAR STRUCTURES: No masses or contour abnormalities. HEART AND VASCULAR STRUCTURES: Heart normal size. No evidence for failure. BONES: No acute findings. HARDWARE: None in the chest. OTHER: No other significant finding. IMPRESSION: NO ACUTE RADIOGRAPHIC FINDING IN THE CHEST. TECHNICAL DOCUMENTATION: JOB ID: [id number] [employer]- All Rights Reserved Reading location - IP/workstation name: [email or web address]
[2018-11-04 10:14] VITALS: BP 145/82
== END 2018-11-04 10:15 | disposition home or self-care (01) ==
LOC: ER 08:12
DX: J06.9 Acute upper respiratory infection, unspecified (principal); R50.9 Fever, unspecified; R05 Cough; M79.10 Myalgia, unspecified site; R09.81 Nasal congestion; R09.89 Other specified symptoms and signs involving the circulatory and respiratory systems; R51 Headache; F17.210 Nicotine dependence, cigarettes, uncomplicated; I10 Essential (primary) hypertension; J44.9 Chronic obstructive pulmonary disease, unspecified
CPT/HCPCS: 71046; 99283; 99406

== ENCOUNTER 2018-12-14 02:50 | Emergency (ER) | payer SELFPAY ==
[2018-12-14] MEDS ORDERED: ONDANSETRON HCL INJ/PF 4 MG/2 ML SDV IV ONE (03:10)
[2018-12-14] MEDS ORDERED: KETOROLAC TROMETHAMINE INJ/PF 30 MG/1 ML SDV IV ONE (03:10)
[2018-12-14] MEDS ORDERED: NORMAL SALINE 1000 ML 1,000 ML IV ONE (03:11)
--- NOTE | 2018-12-14 03:14 | ER Document Report ---
ED General - General Chief Complaint: Pain All Over Stated Complaint: WEAKNESS Time Seen by Provider: 12/14/18 03:05 Notes: Patient is a pleasant 58-year-old female who presents with complaint of cough, body aches, not feeling well. Patient says the symptoms started [place]. 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 She says she is exposed to a lot of people in the public. She is not diabetic. She is on no immunosuppressive drugs. She says she does not have any significant medical problems. She denies any blood in her emesis. She is had diarrhea. No blood in her stool. She has some epigastric abdominal pain. She is had a lot of coughing. A lot of nasal congestion. No other complaints at this time. TRAVEL OUTSIDE OF THE [place] IN LAST 30 DAYS: No - Related Data Allergies/Adverse Reactions: No Known Allergies Allergy (Verified 11/04/18 08:12) Past Medical History - Social History Smoking Status: Never Smoker Frequency of alcohol use: None Drug Abuse: Marijuana Family History: DM, Hypertension - Past Medical History Cardiac Medical History: Reports: Hx Hypertension Pulmonary Medical History: Reports: Hx COPD Renal/ Medical History: Reports: Hx Kidney Stones. Denies: Hx Peritoneal Dialysis GI Medical History: Reports: Hx Gastroesophageal Reflux Disease Musculoskeletal Medical History: Reports Hx Arthritis, Reports Hx Musculoskeletal Deformity, Reports Hx Musculoskeletal Trauma Psychiatric Medical History: Reports: Hx Depression Past Surgical History: Reports: Hx Appendectomy, Hx Hysterectomy - Immunizations Hx Diphtheria, Pertussis, Tetanus Vaccination: Yes Hx Pneumococcal Vaccination: 11/22/14 Review of Systems - Review of Systems Notes: My Normal Review Basic REVIEW OF SYSTEMS: CONSTITUTIONAL : Some chills EENT: Nasal congestion CARDIOVASCULAR: Pain in chest with coughing. RESPIRATORY: Current coughing GASTROINTESTINAL: Gastric abdominal pain, vomiting, and diarrhea. GENITOURINARY: Denies difficulty urinating, painful urination, burning, frequency, or blood in urine. MUSCULOSKELETAL: Body aches SKIN: Denies rash or skin lesions. NEUROLOGICAL: Denies altered mental status or loss of consciousness. Has a headache. Denies weakness or paralysis or loss of use of either side. Denies problems with gait or speech. Denies sensory or motor loss. ALL OTHER SYSTEMS REVIEWED AND NEGATIVE. Physical Exam - Vital signs Vitals: Resp BP Pulse Ox 18 154/84 H 98 12/14/18 03:01 12/14/18 03:01 12/14/18 03:01 - Notes Notes: General Appearance: Well nourished, alert, cooperative, no acute distress, moderate obvious discomfort. recurrent cough on exam. Vitals: reviewed, See vital signs table. Head: no swelling or tenderness to the head Eyes: PERRL, EOMI, Conjuctiva clear Mouth: No decreasd moisture Throat: No tonsillar inflammation, No airway obstruction, No lymphadenopathy Neck: Supple, no neck tenderness, No thyromegaly Lungs: No wheezing, No rales, few scattered rhonci, No accessory muscle use, good air exchange bilaterally. Heart: Normal rate, Regular rythm, No murmur, no rub. Abdomen: Normal BS, soft, No rigidity, mild diffuse abdominal tenderness palpation., No guarding, no rebound, no abdominal masses, no organomegaly Extremities: strength 5/5 in all extremities, good pulses in all extremities, mild tenderness to palpation of her entire body. No areas of swelling or redness. No step-offs or deformities on any extremities., no edema. Skin: warm, dry, appropriate color, no rash Neuro: speech clear, oriented x 3, normal affect, responds appropriately to questions. Nerves II through XII are intact. Distal sensation intact. Patient moves all extremities without difficulty. Course - Re-evaluation Re-evalutation: 12/14/18 05:06 Patient has what appears to be some bronchitis. She recurrent coughing with some scattered rhonchi. Since cleared up. I will give her a small dose of prednisone and place on prednisone for the next few days. I encouraged her to quit smoking. Chest x-ray is negative for pneumonia. She had some body aches which have improved with Toradol. I encouraged her to take Tylenol 500 mg every [address] her on Zofran as this helped her significantly here with her nausea. Blood work is unremarkable. I encouraged her return to ER if she has difficulty breathing, fevers not responding to Tylenol, worsening pain, recurrent vomiting, or if she feels unwell. Patient agrees with plan and will be discharged home. Dictation of this chart was performed using voice recognition software; therefore, there may be some unintended grammatical errors. - Vital Signs Vital signs: Temp Pulse Resp BP Pulse Ox 98.8 F 9 L 152/95 H 97 12/14/18 03:04 12/14/18 04:01 12/14/18 04:01 12/14/18 04:01 - Laboratory Result Diagrams: 12/14/18 03:52 12/14/18 03:52 Laboratory results interpreted by me: 12/14/18 12/14/18 03:52 03:52 Hgb 11.3 L Hct 33.7 L RDW 14.5 H AST 48 H Discharge - Discharge Clinical Impression: Body aches, Cough, Bronchitis Condition: Good Disposition: HOME, SELF-CARE Additional Instructions: You have appears to be some bronchitis. Give this recurrent cough as well as some other viral symptoms including body aches and chills and fevers. Will prescribe some prednisone which will help with recurrent cough. I urge you to quit smoking. I will also prescribe you some Zofran which is a nausea medication to help with your nausea. Please return to the ER if you have difficulty breathing, intractable vomiting, fevers not responding to Tylenol, or if you feel that you are worsening in any way. Please drink lots of non- caffeinated liquids. Please take Tylenol 500 mg every 4 hours. Follow-up with your doctor in 1-2 days for reevaluation. Prescriptions: Ondansetron [Zofran Odt 4 mg Tablet] 1 tab PO Q4H PRN #15 tab.rapdis PRN Reason: For Nausea/Vomiting Prednisone [Deltasone 20 mg Tablet] 2 tab PO DAILY 4 Days tablet Forms: Return to Work
[2018-12-14 04:00] LABS: ABSOLUTE MONOCYTES (AUTO) 0.4 10^3/uL (0.1-1.4); ABSOLUTE NEUT (AUTO) 3.8 10^3/uL (1.7-8.2); BASOPHILS % (AUTO) 0.5 % (0-2); EOSINOPHILS % (AUTO) 0.7 % (0-6); HEMATOCRIT 33.7 % (36.0-47.0); HEMOGLOBIN 11.3 g/dL (12.0-15.5); MEAN CORPUSCULAR HEMOGLOBIN 27.7 pg (27.0-33.4); MEAN CORPUSCULAR HGB CONC 33.6 g/dL (32.0-36.0); MEAN CORPUSCULAR VOLUME 82 fl (80-97); MONOCYTES % (AUTO) 8.3 % (3-13); PLATELET COUNT 169 10^3/uL (150-450); RED BLOOD COUNT 4.09 10^6/uL (3.72-5.28); RED CELL DISTRIBUTION WIDTH 14.5 % (11.5-14.0); SEGMENTED NEUTROPHILS % (AUTO) 72.5 % (42-78); TOTAL CELLS COUNTED % (AUTO) 100 %; WHITE BLOOD COUNT 5.3 10^3/uL (4.0-10.5)
--- NOTE | 2018-12-14 04:01 | RADIOLOGY REPORT (SQ) ---
CLINICAL HISTORY: cough COMPARISON: None. TECHNIQUE: XR CHEST 1 VIEW 12/14/2018 3:11 AM [employer]SEMBLER FINDINGS: Cardiac silhouette is normal in size. Lungs are clear without consolidation, atelectasis, mass or edema. There is no pleural effusion. There is no pneumothorax. There are no acute osseous findings. IMPRESSION: Clear lungs.
[2018-12-14 04:13] VITALS: BP 152/95
[2018-12-14 04:23] LABS: ALANINE AMINOTRANSFERASE 37 U/L (9-52); ALBUMIN 4.3 g/dL (3.5-5.0); ALKALINE PHOSPHATASE 110 U/L (38-126); ANION GAP 9 (5-19); ASPARTATE AMINO TRANSFERASE 48 U/L (14-36); BILIRUBIN,DIRECT 0.2 mg/dL (0.0-0.4); BILIRUBIN,TOTAL 0.2 mg/dL (0.2-1.3); BLOOD UREA NITROGEN 9 mg/dL (7-20); CALCIUM 9.1 mg/dL (8.4-10.2); CARBON DIOXIDE 26 mmol/L (22-30); CHLORIDE 105 mmol/L (98-107); GLUCOSE 105 mg/dL (75-110); POTASSIUM 3.8 mmol/L (3.6-5.0); SODIUM 139.6 mmol/L (137-145)
[2018-12-14] MEDS ORDERED: PREDNISONE 20 MG TABLET PO ONE (05:03)
[2018-12-14] MEDS ORDERED: ONDANSETRON ODT 4 MG TAB (6 TAB/ER DISP) PO PRN (05:05)
== END 2018-12-14 05:20 | disposition home or self-care (01) ==
LOC: ER 02:50
DX: R10.13 Epigastric pain (principal); J40 Bronchitis, not specified as acute or chronic; R05 Cough; R09.81 Nasal congestion; R19.7 Diarrhea, unspecified; R11.10 Vomiting, unspecified; R68.83 Chills (without fever); F12.10 Cannabis abuse, uncomplicated; I10 Essential (primary) hypertension; J44.9 Chronic obstructive pulmonary disease, unspecified; Z87.19 Personal history of other diseases of the digestive system
CPT/HCPCS: 99283; 96361; 96374; 96375; 36415; 83735; 85025; 80053; 71045; J1885; J7512; J2405; J7030

== ENCOUNTER 2019-01-17 10:38 | Emergency (ER) | payer SELFPAY ==
[2019-01-17] MEDS ORDERED: DIPHENHYDRAMINE HCL 50 MG/ML VIAL IV ONE (10:49)
[2019-01-17] MEDS ORDERED: ONDANSETRON HCL INJ/PF 4 MG/2 ML SDV IV ONE (10:49)
[2019-01-17] MEDS: NORMAL SALINE 1000 ML 1,000 ML IV PRN ×2 (11:29→12:33)
[2019-01-17 12:22] LABS: ABSOLUTE LYMPHOCYTES (AUTO) 1.5 10^3/uL (0.5-4.7); ABSOLUTE MONOCYTES (AUTO) 0.8 10^3/uL (0.1-1.4); ABSOLUTE NEUT (AUTO) 11.2 10^3/uL (1.7-8.2); BASOPHILS % (AUTO) 0.3 % (0-2); EOSINOPHILS % (AUTO) 0.3 % (0-6); HEMATOCRIT 35.4 % (36.0-47.0); HEMOGLOBIN 11.8 g/dL (12.0-15.5); LYMPHOCYTES % (AUTO) 10.7 % (13-45); MEAN CORPUSCULAR HEMOGLOBIN 27.7 pg (27.0-33.4); MEAN CORPUSCULAR HGB CONC 33.3 g/dL (32.0-36.0); MEAN CORPUSCULAR VOLUME 83 fl (80-97); MONOCYTES % (AUTO) 6.2 % (3-13); PLATELET COUNT 207 10^3/uL (150-450); RED BLOOD COUNT 4.25 10^6/uL (3.72-5.28); RED CELL DISTRIBUTION WIDTH 14.6 % (11.5-14.0); SEGMENTED NEUTROPHILS % (AUTO) 82.5 % (42-78); TOTAL CELLS COUNTED % (AUTO) 100 %; WHITE BLOOD COUNT 13.6 10^3/uL (4.0-10.5)
[2019-01-17 12:37] LABS: ALANINE AMINOTRANSFERASE 46 U/L (9-52); ALBUMIN 4.7 g/dL (3.5-5.0); ALKALINE PHOSPHATASE 104 U/L (38-126); ANION GAP 11 (5-19); ASPARTATE AMINO TRANSFERASE 35 U/L (14-36); BILIRUBIN,DIRECT 0.1 mg/dL (0.0-0.4); BILIRUBIN,TOTAL 0.6 mg/dL (0.2-1.3); BLOOD UREA NITROGEN 22 mg/dL (7-20); CALCIUM 9.7 mg/dL (8.4-10.2); CARBON DIOXIDE 25 mmol/L (22-30); CHLORIDE 101 mmol/L (98-107); GLUCOSE 79 mg/dL (75-110); LIPASE 62.8 U/L (23-300); POTASSIUM 3.3 mmol/L (3.6-5.0); SODIUM 136.9 mmol/L (137-145); TOTAL PROTEIN 7.7 g/dL (6.3-8.2)
[2019-01-17 12:39] LABS: ALCOHOL < 10 mg/dL (NONE DETECTED)
[2019-01-17] MEDS ORDERED: POTASSIUM CHLORIDE 20 MEQ/15 ML UDCUP PO ONE (12:54)
[2019-01-17] MEDS ORDERED: MAGNESIUM SULFATE/D5W 1 GM/100 ML RTUPB IV ONE (12:54)
--- NOTE | 2019-01-17 13:26 | RADIOLOGY REPORT (SQ) ---
EXAM DESCRIPTION: CT ABD/PELVIS WITH IV ONLY COMPLETED DATE/TIME: 01/17/2019 1:03 pm REASON FOR STUDY: abd pain n/v COMPARISON: None. TECHNIQUE: CT scan of the abdomen and pelvis performed using helical scanning technique with dynamic intravenous contrast injection. No oral contrast. Images reviewed with lung, soft tissue, and bone windows. Reconstructed coronal and sagittal MPR images reviewed. Delayed images for evaluation of the urinary system also acquired. All images stored on PACS. All CT scanners at this facility use dose modulation, iterative reconstruction, and/or weight based d osing when appropriate to reduce radiation dose to as low as reasonably achievable (ALARA). [facility]: Dose Right [facility]: CareDose [facility]: Dose Right [facility]: Teradose 4D [facility]: Stamplay CONTRAST TYPE AND DOSE: contrast/concentration: Isovue 350.00 mg/ml; Total Contrast Delivered: 75.0 ml; Total Saline Delivered: 53.8 ml RENAL FUNCTION: Creatinine: 1.0 RADIATION DOSE: CT Rad equipment meets quality standard of care and radiation dose reduction techniq ues were employed. CTDIvol: 5.5 - 7.5 mGy. DLP: 680 mGy-cm.. LIMITATIONS: None. FINDINGS: LOWER CHEST: No abnormality seen. LIVER: Liver: No abnormality. SPLEEN: No abnormality. PANCREAS: No abnormality. GALLBLADDER: No abnormality. ADRENAL GLANDS: No abnormality. RIGHT KIDNEY AND URETER: Cortical cyst upper pole right kidney. LEFT KIDNEY AND URETER: Cortical cysts upper pole left kidney. Mild ectasia left upper collecting sy stem and proximal left ureter. AORTA AND VESSELS: No abnormality seen. No dissection. Renal arteries, SMA, celiac without stenosis. RETROPERITONEUM: No retroperitoneal adenopathy, hemorrhage or masses. BOWEL AND PERITONEAL CAVITY: No masses or inflammatory changes. No free fluid or peritoneal masses. APPENDIX: Status post appendectomy. PELVIS: Status post hysterectomy. Urinary bladder: No abnormality. ABDOMINAL WALL: No masses. No hernias. BONES: Lumbar spondylosis. Degenerative disc disease L3-4. Degenerative disc disease at L5-S1 with degenerative anterolisthesis of L5 on S1. Foraminal stenosis bilaterally at L5-S1. IMPRESSION: No significant abnormality identified. TECHNICAL DOCUMENTATION: JOB ID: [id number] SC-69 Quality ID # [id number]: Final reports with documentation of one or more dose reduction techniques (e.g., Au tomated exposure control, adjustment of the mA and/or kV according to patient size, use of iterative reconstruction technique) 2010 [employer]- All Rights Reserved Reading location - IP/workstation name: [email or web address]
[2019-01-17] MEDS ORDERED: LIDOCAINE 5% (700 MG) TRANSDERMAL ADH..PATCH TP ONE (13:48)
[2019-01-17] MEDS ORDERED: KETOROLAC TROMETHAMINE INJ/PF 30 MG/1 ML SDV IV ONE (13:48)
--- NOTE | 2019-01-17 13:48 | ER Document Report ---
ED General - General Chief Complaint: Abdominal Pain Stated Complaint: ABDOMINAL PAIN Time Seen by Provider: 01/17/19 10:48 TRAVEL OUTSIDE OF THE [place] IN LAST 30 DAYS: No - HPI Patient complains to provider of: Abdominal pain Notes: Patient coming in for evaluation of abdominal pain. Patient states he drinks on the weekend drinks only 1/5 of liquor states that he did have some drinking performed day prior however now has diffuse abdominal pain with nausea vomiting no diarrhea denies any trauma denies any fevers or chills. Patient is actively vomiting and dry heaving upon my evaluation denies any past medical history other than the alcohol use. Patient denies any allergies to any medications. - Related Data Allergies/Adverse Reactions: No Known Allergies Allergy (Verified 11/04/18 08:12) Past Medical History - Social History Smoking Status: Current Every Day Smoker Chew tobacco use (# tins/day): No Frequency of alcohol use: Social Drug Abuse: None Family History: DM, Hypertension Patient has suicidal ideation: No Patient has homicidal ideation: No - Past Medical History Cardiac Medical History: Reports: Hx Hypertension Pulmonary Medical History: Reports: Hx COPD Renal/ Medical History: Reports: Hx Kidney Stones. Denies: Hx Peritoneal Dialysis GI Medical History: Reports: Hx Gastroesophageal Reflux Disease Musculoskeletal Medical History: Reports Hx Arthritis, Reports Hx Musculoskeletal Deformity, Reports Hx Musculoskeletal Trauma Psychiatric Medical History: Reports: Hx Depression Past Surgical History: Reports: Hx Appendectomy, Hx Hysterectomy - Immunizations Hx Diphtheria, Pertussis, Tetanus Vaccination: Yes Hx Pneumococcal Vaccination: 11/22/14 Review of Systems - Review of Systems Constitutional: No symptoms reported EENT: No symptoms reported Cardiovascular: No symptoms reported Respiratory: No symptoms reported Gastrointestinal: Abdominal pain, Nausea, Vomiting Genitourinary: No symptoms reported Female Genitourinary: No symptoms reported Musculoskeletal: No symptoms reported Skin: No symptoms reported Hematologic/Lymphatic: No symptoms reported Neurological/Psychological: No symptoms reported -: Yes All other systems reviewed and negative Physical Exam - Vital signs Vitals: Temp Pulse Resp BP Pulse Ox 98.4 F 62 18 169/93 H 99 01/17/19 10:40 01/17/19 10:40 01/17/19 10:40 01/17/19 10:40 01/17/19 10:40 Interpretation: Normal - General General appearance: Appears well, Alert - HEENT Head: Normocephalic, Atraumatic Eyes: Normal Pupils: PERRL - Respiratory Respiratory status: No respiratory distress Chest status: Nontender Breath sounds: Normal Chest palpation: Normal - Cardiovascular Rhythm: Regular Heart sounds: Normal auscultation Murmur: No - Abdominal Inspection: Normal Distension: No distension Bowel sounds: Normal Tenderness: Nontender Organomegaly: No organomegaly - Back Back: Normal, Nontender - Extremities General upper extremity: Normal inspection, Nontender, Normal color, Normal ROM, Normal temperature General lower extremity: Normal inspection, Nontender, Normal color, Normal ROM, Normal temperature, Normal weight bearing. No: Kane's sign - Neurological Neuro grossly intact: Yes Cognition: Normal Orientation: AAOx4 Valdez Coma Scale Eye Opening: Spontaneous Valdez Coma Scale Verbal: Oriented Ashley Coma Scale Motor: Obeys Commands Valdez Coma Scale Total: 15 Speech: Normal Motor strength normal: LUE, RUE, LLE, RLE Sensory: Normal - Psychological Associated symptoms: Normal affect, Normal mood - Skin Skin Temperature: Warm Skin Moisture: Dry Skin Color: Normal Course - Re-evaluation Re-evalutation: 01/17/19 13:40 The patient presents with abdominal pain without signs of peritonitis or other life-threatening or serious etiology. The patient appears stable for discharge and has been instructed to return immediately if the symptoms worsen in any way, or in 8-12hr if not improved for re-evaluation. The patient has been instructed to return if the symptoms worsen or change in any way. - Vital Signs Vital signs: Temp Pulse Resp BP Pulse Ox 98.4 F 59 L 13 149/81 H 100 01/17/19 10:40 01/17/19 11:59 01/17/19 13:22 01/17/19 13:07 01/17/19 13:22 - Laboratory Result Diagrams: 01/17/19 12:07 01/17/19 12:07 Laboratory results interpreted by me: 01/17/19 01/17/19 12:07 12:07 WBC 13.6 H Hgb 11.8 L Hct 35.4 L RDW 14.6 H Seg Neutrophils % 82.5 H Lymphocytes % 10.7 L Absolute Neutrophils 11.2 H Sodium 136.9 L Potassium 3.3 L BUN 22 H Est GFR (Non-Af Amer) 57 L Discharge - Discharge Clinical Impression: Nausea vomiting and diarrhea Abdominal pain Qualifiers: Abdominal location: generalized Qualified Code(s): R10.84 - Generalized abdominal pain Condition: Good Disposition: HOME, SELF-CARE Instructions: Abdominal Pain ([facility]), Gastroenteritis (adult) ([facility]), Clear Liquid Diet ([facility]) Additional Instructions: Your evaluation today shows no signs of infection and will require antibiotics also which shows no surgical pathology for your abdominal pain nausea vomiting or diarrhea. Your symptoms are likely due to a virus. However, it is important that you continue to monitor for any concerning symptoms including inability to tolerate oral fluids, less than 2 urinations in a 24 hour period, and lethargy Please continue to offer oral solutions such as Pedialyte, water, gatorade. It is okay if you do not want to eat over the next several days but it is important that they continue to drink fluids. You may also provide a medication such as ibuprofen (Motrin) or acetaminophen (Tylenol) per box instructions for fever. Please also follow-up with your doctor in the next several days. Please take the medications given to you as prescribed. I would recommend a clear liquid diet for the next 24 hours Prescriptions: Dicyclomine HCl [Bentyl 20 mg Tablet] 20 mg PO QID #30 tablet Promethazine HCl [Phenergan 25 mg Tablet] 25 mg PO Q6 #30 tablet Forms: Return to Work
[2019-01-17 14:20] LABS: APPEARANCE,URINE CLOUDY; BILIRUBIN,URINE NEGATIVE (NEGATIVE); COLOR,URINE YELLOW; GLUCOSE, URINE NEGATIVE (NEGATIVE); KETONES,URINE 20 mg/dL (NEGATIVE); LEUKOCYTE ESTERASE,URINE NEGATIVE (NEGATIVE); NITRITE,URINE NEGATIVE (NEGATIVE); PROTEIN,URINE 30 mg/dL (NEGATIVE); URINE SPECIFIC GRAVITY 1.042; UROBILINOGEN,URINE NEGATIVE mg/dL (<2.0)
[2019-01-17 14:48] VITALS: BP 157/84
== END 2019-01-17 14:48 | disposition home or self-care (01) ==
LOC: ER 10:38
DX: R10.84 Generalized abdominal pain (principal); R11.2 Nausea with vomiting, unspecified; R19.7 Diarrhea, unspecified; F17.200 Nicotine dependence, unspecified, uncomplicated; I10 Essential (primary) hypertension; J44.9 Chronic obstructive pulmonary disease, unspecified; Z87.442 Personal history of urinary calculi; Z90.710 Acquired absence of both cervix and uterus
CPT/HCPCS: 99284; 36415; 80307; 83690; 85025; 80053; 81001; 83605; 74177; J1200; J1885; J3475; J2405; J7030

== ENCOUNTER 2019-01-20 08:01 | Emergency (ER) | payer SELFPAY ==
[2019-01-20 08:15] VITALS: BP 166/69
[2019-01-20] MEDS ORDERED: VALACYCLOVIR HCL 500 MG TABLET PO ONE (08:26)
[2019-01-20] MEDS ORDERED: LIDOCAINE 5% (700 MG) TRANSDERMAL ADH..PATCH TP ONE (08:26)
[2019-01-20] MEDS ORDERED: OXYCODONE-ACETAMINOPHEN 5-325 MG TABLET PO ONE (08:26)
--- NOTE | 2019-01-20 08:32 | ER Document Report ---
HPI - HPI Patient complains to provider of: rash Time Seen by Provider: 01/20/19 08:18 Onset: Last week Onset/Duration: Worse Quality of pain: Burning Pain Level: 4 Context: Patient complains of pruritic painful rash to the left upper back area. Patient states she had pain for the past week although just recently started to develop skin lesions. Patient denies any trauma. Patient denies any fever. Associated Symptoms: Other - Left upper back pain with rash. denies: Fever Exacerbated by: Denies Relieved by: Denies Similar symptoms previously: No Recently seen / treated by doctor: Yes - ROS ROS below otherwise negative: Yes Systems Reviewed and Negative: Yes All other systems reviewed and negative - CONSTITUTIONAL Constitutional: DENIES: Fever - REPRODUCTIVE Reproductive: DENIES: : - MUSCULOSKELETAL Musculoskeletal: REPORTS: Back Pain - DERM Skin Color: Normal Skin Problems: Rash Past Medical History - General Information source: Patient - Social History Smoking Status: Current Every Day Smoker Chew tobacco use (# tins/day): No Smoking Education Provided: Yes Frequency of alcohol use: Occasional Drug Abuse: Marijuana Occupation: [employer] Lives with: Family Family History: DM, Hypertension Patient has suicidal ideation: No Patient has homicidal ideation: No - Past Medical History Cardiac Medical History: Reports: Hx Hypertension Pulmonary Medical History: Reports: Hx COPD Renal/ Medical History: Reports: Hx Kidney Stones. Denies: Hx Peritoneal Dialysis GI Medical History: Reports: Hx Gastroesophageal Reflux Disease Musculoskeletal Medical History: Reports Hx Arthritis, Reports Hx Musculoskeletal Deformity, Reports Hx Musculoskeletal Trauma Psychiatric Medical History: Reports: Hx Depression Past Surgical History: Reports: Hx Appendectomy, Hx Hysterectomy - Immunizations Hx Diphtheria, Pertussis, Tetanus Vaccination: Yes Hx Pneumococcal Vaccination: 11/22/14 Vertical Provider Document - CONSTITUTIONAL Agree With Documented VS: Yes Exam Limitations: No Limitations General Appearance: WD/WN, No Apparent Distress - INFECTION CONTROL TRAVEL OUTSIDE OF THE [place] IN LAST 30 DAYS: No - HEENT HEENT: Atraumatic, Normocephalic - NECK Neck: Normal Inspection - RESPIRATORY Respiratory: Breath Sounds Normal, No Respiratory Distress - CARDIOVASCULAR Cardiovascular: Regular Rate, Regular Rhythm - BACK Back: Abnormal Inspection - Rash to left thoracic area. Patient with erythematous maculopapular lesions with a few scattered lesions to have a vesicular appearance. Tender to palpation - MUSCULOSKELETAL/EXTREMETIES Musculoskeletal/Extremeties: MAEW, FROM - NEURO Level of Consciousness: Awake, Alert, Appropriate Motor/Sensory: No Motor Deficit - DERM Integumentary: Warm, Dry, No Rash - See above Course - Re-evaluation Re-evalutation: 01/20/19 Patient with rash that looks suspicious for herpes zoster at this time. Discussed management of symptoms. Patient nontoxic in appearance and stable for discharge at this time. - Vital Signs Vital signs: Temp Pulse Resp BP Pulse Ox 98.2 F 55 L 16 166/69 H 100 01/20/19 08:14 01/20/19 08:14 01/20/19 08:14 01/20/19 08:14 01/20/19 08:14 Discharge - Discharge Clinical Impression: Shingles Qualifiers: Herpes zoster complications: without complications Qualified Code(s): B02.9 - Zoster without complications Condition: Stable Disposition: HOME, SELF-CARE Instructions: Oral Narcotic Medication ([facility]), Shingles ([facility]) Additional Instructions: Return immediately for any new or worsening symptoms Followup with your primary care provider, call tomorrow to make a followup appointment Prescriptions: Lidocaine [Lidoderm 5% (700 mg) Transdermal Patch] 1 patch TP DAILY PRN #10 adh..patch PRN Reason: Oxycodone HCl/Acetaminophen [Percocet 5-325 mg Tablet] 1 tab PO ASDIR PRN #15 tablet PRN Reason: Valacyclovir HCl [Valacyclovir] 1,000 mg PO TID #21 tablet Forms: Smoking Cessation Education Referrals: [facility] [Provider Group] - Follow up as needed
== END 2019-01-20 08:40 | disposition home or self-care (01) ==
LOC: ER 08:01
DX: B02.9 Zoster without complications (principal); F17.200 Nicotine dependence, unspecified, uncomplicated; I10 Essential (primary) hypertension; J44.9 Chronic obstructive pulmonary disease, unspecified; F12.10 Cannabis abuse, uncomplicated
CPT/HCPCS: 99282

== ENCOUNTER 2019-02-08 12:45 | Emergency (ER) | payer SELFPAY ==
[2019-02-08 13:03] VITALS: BP 135/67
--- NOTE | 2019-02-08 15:55 | ER Document Report ---
HPI - HPI Patient complains to provider of: bug bites Time Seen by Provider: 02/08/19 14:51 Pain Level: 0 Context: Very pleasant 58-year-old female presents for multiple bites on her bilateral anterior legs. She was gardening on Friday and then noticed some itching on her legs later that evening. She says there has been intense itching and her skin now hurts. She has tried calamine lotion which has offered temporary relief. She denies any fevers or chills, nausea or vomiting, headaches or joint aches, photophobia. Denies any other symptoms. - REPRODUCTIVE Reproductive: DENIES: : Past Medical History - Social History Smoking Status: Current Every Day Smoker Chew tobacco use (# tins/day): No Frequency of alcohol use: Occasional Drug Abuse: Marijuana Family History: DM, Hypertension Patient has suicidal ideation: No Patient has homicidal ideation: No - Past Medical History Cardiac Medical History: Reports: Hx Hypertension Pulmonary Medical History: Reports: Hx COPD Renal/ Medical History: Reports: Hx Kidney Stones. Denies: Hx Peritoneal Dialysis GI Medical History: Reports: Hx Gastroesophageal Reflux Disease Musculoskeletal Medical History: Reports Hx Arthritis, Reports Hx Musculoskeletal Deformity, Reports Hx Musculoskeletal Trauma Psychiatric Medical History: Reports: Hx Depression Past Surgical History: Reports: Hx Appendectomy, Hx Hysterectomy - Immunizations Hx Diphtheria, Pertussis, Tetanus Vaccination: Yes Hx Pneumococcal Vaccination: 11/22/14 Vertical Provider Document - CONSTITUTIONAL Agree With Documented VS: Yes Notes: PHYSICAL EXAMINATION: Reviewed vital signs and charting by RN GENERAL: Alert, interacts well. No acute distress. HEAD: Normocephalic, atraumatic. EYES: Pupils equal and round. Extraocular movements intact. NECK: Full range of motion. Trachea midline. LUNGS: Clear to auscultation bilaterally, no wheezes, rales, or rhonchi. No respiratory distress. EXTREMITIES: Moves all 4 extremities spontaneously. No edema, No cyanosis. Normal distal neurovascular exam NEUROLOGIC: Oriented and appropriate. Normal speech. PSYCH: Normal affect, normal mood. SKIN: Warm, dry, normal turgor. No rashes or lesions noted. Left anterior distal lower extremity over the wilson with a large 4 cm round lesion consistent with cellulitis, 2 additional lesions over the left knee approximately 2 cm around, lesion over the right anterior wilson approximately 4 cm x 4 cm also consistent with sialitis. - INFECTION CONTROL TRAVEL OUTSIDE OF THE [place] IN LAST 30 DAYS: No Course - Re-evaluation Re-evalutation: 02/08/19 15:57 Patient states she has been scratching the areas incessantly for the last couple of days. It appears that the wounds have become infected. We will place her on a short course of Keflex. I gave her strict return precautions and marked the lesions with a skin pen. These lesions are not consistent with erythema migrans nor are they consistent with spider bites. 02/08/19 15:58 - Vital Signs Vital signs: Temp Pulse Resp BP Pulse Ox 98.5 F 61 16 135/67 H 99 02/08/19 13:01 02/08/19 13:01 02/08/19 13:01 02/08/19 13:01 02/08/19 13:01 Discharge - Discharge Clinical Impression: Skin lesion Cellulitis Qualifiers: Site of cellulitis: extremity Site of cellulitis of extremity: lower extremity Laterality: unspecified laterality Qualified Code(s): L03.119 - Cellulitis of unspecified part of limb Condition: Good Disposition: HOME, SELF-CARE Instructions: Cellulitis ([facility]) Additional Instructions: The rash is likely due to infection of your skin. You need to take the antibiotics as prescribed. Do not stop even if the rash goes away until you have completed all the antibiotics. The area of redness was traced out here in the emergency department with a marking pen. You need to return to emergency department if the redness spreads outside of this area by more than 2 cm in any direction. You should also return if you develop fevers with temperature greater than 101, persistent vomiting, worsening pain, or have any other symptoms that are concerning to you.
== END 2019-02-08 16:05 | disposition home or self-care (01) ==
LOC: ER 12:45
DX: L03.116 Cellulitis of left lower limb (principal); L03.115 Cellulitis of right lower limb; L98.9 Disorder of the skin and subcutaneous tissue, unspecified; F17.200 Nicotine dependence, unspecified, uncomplicated; I10 Essential (primary) hypertension; J44.9 Chronic obstructive pulmonary disease, unspecified; Z87.442 Personal history of urinary calculi; Z90.710 Acquired absence of both cervix and uterus
CPT/HCPCS: 99281

== ENCOUNTER 2019-03-15 14:37 | Emergency (ER) | payer SELFPAY ==
--- NOTE | 2019-03-15 16:46 | ER Document Report ---
HPI - HPI Time Seen by Provider: 03/15/19 16:29 Pain Level: 3 Notes: Patient is a 58-year-old female presenting with skin problem. Patient states that she has multiple red spots on her body, states she has some on her bilateral ankles and also one on her hip. Patient concerned she may have shingles. Patient states that the lesions are itchy but not painful. She does state that she has been outdoors and gardening. - REPRODUCTIVE Reproductive: DENIES: : Past Medical History - General Information source: Patient - Social History Smoking Status: Never Smoker Frequency of alcohol use: None Drug Abuse: None Family History: DM, Hypertension - Past Medical History Cardiac Medical History: Reports: Hx Hypertension Pulmonary Medical History: Reports: Hx COPD Renal/ Medical History: Reports: Hx Kidney Stones. Denies: Hx Peritoneal Dialysis GI Medical History: Reports: Hx Gastroesophageal Reflux Disease Musculoskeletal Medical History: Reports Hx Arthritis, Reports Hx Musculoskeletal Deformity, Reports Hx Musculoskeletal Trauma Psychiatric Medical History: Reports: Hx Depression Past Surgical History: Reports: Hx Appendectomy, Hx Hysterectomy - Immunizations Hx Diphtheria, Pertussis, Tetanus Vaccination: Yes Hx Pneumococcal Vaccination: 11/22/14 Vertical Provider Document - CONSTITUTIONAL Notes: PHYSICAL EXAMINATION: GENERAL: Well-appearing, well-nourished and in no acute distress. HEAD: Atraumatic, normocephalic. EYES: Pupils equal round extraocular movements intact, conjunctiva are normal. ENT: Nares patent NECK: Normal range of motion LUNGS: No respiratory distress Musculoskeletal: Normal range of motion NEUROLOGICAL: Normal speech, normal gait. PSYCH: Normal mood, normal affect. SKIN: Warm, Dry, normal turgor, multiple areas of erythema noted one on patient's left hip and one on each of patient's ankles, these appear to be consistent with insect bites as there is a puncture wound in the center of them. There is no induration or fluctuance noted. - INFECTION CONTROL TRAVEL OUTSIDE OF THE [place] IN LAST 30 DAYS: No Course - Re-evaluation Re-evalutation: Patient's physical examination is most consistent with an insect bite. This is not shingles as it is on her bilateral ankles. Patient will be started on Keflex. - Vital Signs Vital signs: Temp Pulse Resp BP Pulse Ox 98.6 F 78 16 124/66 97 03/15/19 14:42 03/15/19 14:42 03/15/19 14:42 03/15/19 14:42 03/15/19 14:42 Discharge - Discharge Clinical Impression: Insect bite Qualifiers: Encounter type: initial encounter Site of insect bite: unspecified site Qualified Code(s): W57.XXXA - Bitten or stung by nonvenomous insect and other nonvenomous arthropods, initial encounter Cellulitis Qualifiers: Site of cellulitis: other site Qualified Code(s): L03.818 - Cellulitis of other sites Condition: Stable Disposition: HOME, SELF-CARE Additional Instructions: The rash is likely due to infection of your skin. You need to take the antibiotics as prescribed. Do not stop even if the rash goes away until you have completed all the antibiotics. You should also return if you develop fevers with temperature greater than 101, persistent vomiting, worsening pain, or have any other symptoms that are concerning to you. Please also take Benadryl 25 to 50 mg every 6 hours for itching. Prescriptions: Cephalexin [Cephalexin 500 MG Tablet] 1 tab PO QID #28 tablet Prednisone [Deltasone 20 mg Tablet] 3 tab PO DAILY 5 Days #15 tablet Forms: Return to Work
[2019-03-15 16:57] VITALS: BP 133/95
== END 2019-03-15 16:57 | disposition home or self-care (01) ==
LOC: ER 14:37
DX: L03.90 Cellulitis, unspecified (principal); T14.8XXA Other injury of unspecified body region, initial encounter; W57.XXXA Bitten or stung by nonvenomous insect and other nonvenomous arthropods, initial encounter; I10 Essential (primary) hypertension; J44.9 Chronic obstructive pulmonary disease, unspecified
CPT/HCPCS: 99281

== ENCOUNTER 2019-04-26 15:08 | Emergency (ER) | payer SELFPAY ==
[2019-04-26 15:24] VITALS: BP 141/90
[2019-04-26] MEDS ORDERED: KETOROLAC TROMETHAMINE INJ/PF 30 MG/1 ML SDV IV ONE (15:28)
[2019-04-26] MEDS ORDERED: PROMETHAZINE HCL INJ 25 MG/1 ML VIAL IM ONE (15:28)
[2019-04-26] MEDS ORDERED: NORMAL SALINE 1000 ML 1,000 ML IV ONE (15:29)
[2019-04-26] MEDS ORDERED: FENTANYL CITRATE INJ/PF 100 MCG/2 ML AMPUL IM ONE (15:29)
--- NOTE | 2019-04-26 15:32 | ER Document Report ---
ED Medical Screen (RME) - General Chief Complaint: Flank Pain Stated Complaint: ABDOMINAL PAIN Time Seen by Provider: 04/26/19 15:25 TRAVEL OUTSIDE OF THE [place] IN LAST 30 DAYS: No - HPI Notes: 04/26/19 15:30 Patient is a 58-year-old female with history of hypertension who presents complaining of sudden onset left flank pain that radiates into her buttock and into the left groin area that began rather suddenly about an hour ago. She has had associated nausea and vomiting as well as dysuria. Denies RIZZO, fever, neck pain, URI, CP, SOB, or rash. I have treated and performed a rapid initial assessment of this patient. A comprehensive ED assessment and evaluation of the patient, analysis of test results and completion of medical decision making process will be conducted by additional ED providers. PHYSICAL EXAMINATION: GENERAL: Patient appears very uncomfortable and cannot find a position that helps and is actively vomiting and holding her left flank. LUNGS: Breath sounds clear to auscultation bilaterally and equal. No wheezes rales or rhonchi. HEART: Regular rate and rhythm without murmurs, rubs, gallops. - Related Data Allergies/Adverse Reactions: No Known Allergies Allergy (Verified 04/26/19 15:18) Past Medical History - Past Medical History Cardiac Medical History: Reports: Hx Hypertension Pulmonary Medical History: Reports: Hx COPD Renal/ Medical History: Reports: Hx Kidney Stones. Denies: Hx Peritoneal Dial ysis GI Medical History: Reports: Hx Gastroesophageal Reflux Disease Musculoskeltal Medical History: Reports Hx Arthritis, Reports Hx Musculoskeletal Deformity, Reports Hx Musculoskeletal Trauma Psychiatric Medical History: Reports: Hx Depression Past Surgical History: Reports: Hx Appendectomy, Hx Hysterectomy - Immunizations Hx Diphtheria, Pertussis, Tetanus Vaccination: Yes History of Influenza Vaccine for 08/2017 - 01/2018 Season: No Physical Exam - Vital signs Vitals: Pulse Resp BP Pulse Ox 67 22 H 141/90 H 98 04/26/19 15:21 04/26/19 15:21 04/26/19 15:21 04/26/19 15:21 Course - Vital Signs Vital signs: Temp Pulse Resp BP Pulse Ox 67 22 H 141/90 H 98 04/26/19 15:21 04/26/19 15:21 04/26/19 15:21 04/26/19 15:21
--- NOTE | 2019-04-26 16:09 | RADIOLOGY REPORT (SQ) ---
EXAM DESCRIPTION: CT ABD/PELVIS NO ORAL OR IV COMPLETED DATE/TIME: 04/26/2019 3:48 pm REASON FOR STUDY: left flank pain, n/v, dysuria COMPARISON: 01/17/2019 TECHNIQUE: CT scan of the abdomen and pelvis performed without intravenous or oral contrast. Images reviewed with lung, soft tissue, and bone windows. Reconstructed coronal and sagittal MPR images revi ewed. All images stored on PACS. All CT scanners at this facility use dose modulation, iterative reconstruction, and/or weight based d osing when appropriate to reduce radiation dose to as low as reasonably achievable (ALARA). [facility]: Dose Right [facility]: CareDose [facility]: Dose Right [facility]: Teradose 4D [facility]: Re[place] RADIATION DOSE: CT Rad equipment meets quality standard of care and radiation dose reduction techniq ues were employed. CTDIvol: 5.1 mGy. DLP: 241 mGy-cm.mGy. LIMITATIONS: None. FINDINGS: LOWER CHEST: No significant findings. No nodules or infiltrates. NON-CONTRASTED LIVER, SPLEEN, ADRENALS: Evaluation limited by lack of IV contrast. No identified sign ificant masses. PANCREAS: No masses. No peripancreatic inflammatory changes. GALLBLADDER: No calcified stones. No inflammatory changes to suggest cholecystitis. RIGHT KIDNEY AND URETER: No cysts identified. No solid masses. Tiny parenchymal calcified stones. No hydronephrosis or hydroureter. LEFT KIDNEY AND URETER: No cysts identified. No solid masses. 5 mm calcified stone in the left UVJ w ith mild hydronephrosis - hydroureter. AORTA AND RETROPERITONEUM: No aneurysm. No retroperitoneal masses or adenopathy. BOWEL AND PERITONEAL CAVITY: No obvious masses or inflammatory changes. No free fluid. APPENDIX: Surgically absent. PELVIS, BLADDER, AND ABDOMINAL WALL:Prior hysterectomy No free fluid. Unremarkable bladder. BONES: No acute findings. OTHER: No other significant finding. IMPRESSION: 5 mm calcified stone in the left UVJ with mild hydronephrosis - hydroureter. TECHNICAL DOCUMENTATION: JOB ID: [id number] Quality ID # [id number]: Final reports with documentation of one or more dose reduction techniques (e.g., Au tomated exposure control, adjustment of the mA and/or kV according to patient size, use of iterative reconstruction technique) 2010 [employer]- All Rights Reserved Reading location - IP/workstation name: [email or web address]
[2019-04-26 17:05] LABS: ABSOLUTE EOSINOPHILS # (AUTO) 0.3 10^3/uL (0.0-0.6); ABSOLUTE LYMPHOCYTES (AUTO) 2.2 10^3/uL (0.5-4.7); ABSOLUTE MONOCYTES (AUTO) 0.5 10^3/uL (0.1-1.4); BASOPHILS % (AUTO) 0.4 % (0-2); EOSINOPHILS % (AUTO) 2.5 % (0-6); HEMATOCRIT 36.5 % (36.0-47.0); HEMOGLOBIN 12.1 g/dL (12.0-15.5); LYMPHOCYTES % (AUTO) 19.6 % (13-45); MEAN CORPUSCULAR HEMOGLOBIN 27.8 pg (27.0-33.4); MEAN CORPUSCULAR HGB CONC 33.1 g/dL (32.0-36.0); MEAN CORPUSCULAR VOLUME 84 fl (80-97); MONOCYTES % (AUTO) 4.6 % (3-13); PLATELET COUNT 191 10^3/uL (150-450); RED BLOOD COUNT 4.35 10^6/uL (3.72-5.28); RED CELL DISTRIBUTION WIDTH 14.4 % (11.5-14.0); SEGMENTED NEUTROPHILS % (AUTO) 72.9 % (42-78); TOTAL CELLS COUNTED % (AUTO) 100 %
[2019-04-26 17:21] LABS: APPEARANCE,URINE SLIGHTLY-CLOUDY; BILIRUBIN,URINE NEGATIVE (NEGATIVE); COLOR,URINE YELLOW; GLUCOSE, URINE NEGATIVE (NEGATIVE); KETONES,URINE NEGATIVE (NEGATIVE); LEUKOCYTE ESTERASE,URINE NEGATIVE (NEGATIVE); NITRITE,URINE NEGATIVE (NEGATIVE); PROTEIN,URINE NEGATIVE (NEGATIVE); URINE SPECIFIC GRAVITY 1.024; UROBILINOGEN,URINE NEGATIVE mg/dL (<2.0)
[2019-04-26 17:24] LABS: ALANINE AMINOTRANSFERASE 26 U/L (9-52); ALBUMIN 4.8 g/dL (3.5-5.0); ALKALINE PHOSPHATASE 107 U/L (38-126); ANION GAP 8 (5-19); ASPARTATE AMINO TRANSFERASE 28 U/L (14-36); BILIRUBIN,DIRECT 0.3 mg/dL (0.0-0.4); BILIRUBIN,TOTAL 0.4 mg/dL (0.2-1.3); BLOOD UREA NITROGEN 21 mg/dL (7-20); CARBON DIOXIDE 27 mmol/L (22-30); CHLORIDE 106 mmol/L (98-107); GLUCOSE 98 mg/dL (75-110); POTASSIUM 4.4 mmol/L (3.6-5.0); SODIUM 140.6 mmol/L (137-145); TOTAL PROTEIN 8.1 g/dL (6.3-8.2)
[2019-04-26] MEDS ORDERED: KETOROLAC TROMETHAMINE INJ/PF 30 MG/1 ML SDV ONE (18:27)
--- NOTE | 2019-04-26 18:29 | ER Document Report ---
HPI - HPI Time Seen by Provider: 04/26/19 15:25 Pain Level: 5 Notes: Patient is a 58-year-old female with history of hypertension who presents complaining of sudden onset left flank pain that radiates into her buttock and into the left groin area that began rather suddenly about an hour ago. She has had associated nausea and vomiting as well as dysuria. Denies drug allergies. Denies any injury. Patient describes the pain as sharp. Denies any headache, fever, neck pain, URI, sore throat, chest pain, palpitations, syncope, cough, shortness of breath, wheeze, dyspnea, diarrhea, urinary retention, loss of control of bowel or bladder, numbness/tingling, saddle anesthesia, muscle paralysis/weakness, or rash. - ROS Systems Reviewed and Negative: Yes All other systems reviewed and negative - REPRODUCTIVE Reproductive: DENIES: : - DERM Skin Color: Normal Past Medical History - Social History Smoking Status: Current Every Day Smoker Frequency of alcohol use: Social Drug Abuse: None Family History: DM, Hypertension Patient has suicidal ideation: No Patient has homicidal ideation: No - Past Medical History Cardiac Medical History: Reports: Hx Hypertension Pulmonary Medical History: Reports: Hx COPD Renal/ Medical History: Reports: Hx Kidney Stones. Denies: Hx Peritoneal Dialysis GI Medical History: Reports: Hx Gastroesophageal Reflux Disease Musculoskeletal Medical History: Reports Hx Arthritis, Reports Hx Musculoskeletal Deformity, Reports Hx Musculoskeletal Trauma Psychiatric Medical History: Reports: Hx Depression Past Surgical History: Reports: Hx Appendectomy, Hx Hysterectomy - Immunizations Hx Diphtheria, Pertussis, Tetanus Vaccination: Yes Hx Pneumococcal Vaccination: 11/22/14 Vertical Provider Document - CONSTITUTIONAL Agree With Documented VS: Yes Notes: PHYSICAL EXAMINATION: GENERAL: Well-appearing, well-nourished and in no acute resp distress. Pt appears uncomfortable and actively vomiting in triage. LUNGS: Breath sounds clear to auscultation bilaterally and equal. No wheezes rales or rhonchi. HEART: Regular rate and rhythm without murmurs, rubs, gallops. ABDOMEN: Soft, nontender, nondistended abdomen. No guarding, no rebound. No masses appreciated. Normal bowel sounds present. + left CVA tenderness Back: FROM. SLR neg. No foot drop. + tenderness left paraspinal area of the L-spine. Musculoskeletal: FROM to passive/active. Strength 5+/5. Extremities: No cyanosis, clubbing, or edema b/l. Peripheral pulses 2+. Capillary refill less than 3 seconds. NEUROLOGICAL: Normal speech, normal gait. Normal sensory, motor exams PSYCH: Normal mood, normal affect. SKIN: Warm, Dry, normal turgor, no rashes or lesions noted. - INFECTION CONTROL TRAVEL OUTSIDE OF THE [place] IN LAST 30 DAYS: No Course - Re-evaluation Re-evalutation: 04/26/19 18:27 Patient is an afebrile, well-hydrated, 58-year-old female who presents with a 5 mm ureteral stone. Vitals are acceptable without significant tachycardia, tachypnea, or hypoxia. PE is otherwise unremarkable. Patient is nontoxic- appearing and is tolerating p.o. without difficulty at this time. Patient was given Phenergan as well as fentanyl and Toradol. I was asked to reevaluate this patient for discharge as she would like to go home and is feeling better and has not had a room yet. Reevaluation does not show any deterioration or new physical exam findings. Patient looks much improved from when I saw her at triage initially. Labs are acceptable. See CT scan report. Low suspicion/risk for urosepsis, acute appendicitis, bowel obstruction, acute cholecystitis, acute cholangitis, perforated diverticulitis, incarcerated hernia, pancreatitis, perforated ulcer, peritonitis, pelvic inflammatory disease, tubo-ovarian abscess, ovarian torsion, cauda equina, disc herniation causing severe spinal stenosis, spinal abscess, discitis, or other systemic emergent condition at this time. Patient is aware that her condition can change from initial presentation and she needs to monitor symptoms closely and seek medical attention if any acute changes. I will send her home with medications for nausea and pain. Conservative measures otherwise for symptoms. Recheck with your PCM in 2-3 days. Consider consult with a Urologist. Return to the ED with any worsening/concerning symptoms otherwise as reviewed in discharge. Patient is in agreement. - Vital Signs Vital signs: Temp Pulse Resp BP Pulse Ox 67 22 H 141/90 H 98 04/26/19 15:21 04/26/19 15:21 04/26/19 15:21 04/26/19 15:21 - Laboratory Result Diagrams: 04/26/19 16:42 04/26/19 16:42 Laboratory results interpreted by me: 0604/26/19 04/26/19 16:42 16:42 16:42 WBC 11.0 H RDW 14.4 H BUN 21 H Urine Blood SMALL H Discharge - Discharge Clinical Impression: Left flank pain, Ureteral stone Condition: Stable Disposition: HOME, SELF-CARE Instructions: Antinausea Medication ([facility]), Kidney Stone ([facility]) Additional Instructions: Push fluids (i.e. water, cranberry juice) Proper hygenic technique Keep the skin clean Tylenol/ibuprofen as needed Take medications as directed F/u with your PCM in 2-3 days for a recheck Consider consult with a Urologist for ongoing/worsening symptoms. Return to the ED with any worsening symptoms and/or development of fever, headache, chest pain, palpitations, syncope, shortness of breath, trouble breathing, abdominal pain, n/v/d, blood in stool/urine, loss of control of bowel/bladder, urinary retention, or other worsening symptoms that are con cerning to you. Prescriptions: Morphine Sulfate [Morphine Ir 15 Mg Tablet] 15 mg PO TID #12 tablet Ondansetron [Zofran Odt 4 mg Tablet] 1 - 2 tab PO Q4H PRN #15 tab.rapdis PRN Reason: For Nausea/Vomiting Tamsulosin HCl [Flomax] 0.4 mg PO DAILY #10 cap.er.24h Forms: Elevated Blood Pressure, Smoking Cessation Education, Return to Work Referrals: [facility] [Provider Group] - Follow up as needed
== END 2019-04-26 18:50 | disposition home or self-care (01) ==
LOC: ER 15:08
DX: N13.2 Hydronephrosis with renal and ureteral calculous obstruction (principal); R11.2 Nausea with vomiting, unspecified; R30.0 Dysuria; R10.9 Unspecified abdominal pain; I10 Essential (primary) hypertension; F17.200 Nicotine dependence, unspecified, uncomplicated; J44.9 Chronic obstructive pulmonary disease, unspecified
CPT/HCPCS: 99284; 96372; 96374; 36415; 83690; 85025; 80053; 81001; 74176; J3010; J1885; J2550

== ENCOUNTER → 2019-10-28 | Outpatient (CLI) | payer OTHER ==
[2019-10-28 08:11] LABS: ABSOLUTE EOSINOPHILS # (AUTO) 0.4 10^3/uL (0.0-0.6); ABSOLUTE LYMPHOCYTES (AUTO) 3.1 10^3/uL (0.5-4.7); ABSOLUTE MONOCYTES (AUTO) 0.7 10^3/uL (0.1-1.4); ABSOLUTE NEUT (AUTO) 3.5 10^3/uL (1.7-8.2); BASOPHILS % (AUTO) 0.6 % (0-2); EOSINOPHILS % (AUTO) 4.7 % (0-6); HEMOGLOBIN 12.6 g/dL (12.0-15.5); LYMPHOCYTES % (AUTO) 40.5 % (13-45); MEAN CORPUSCULAR HGB CONC 33.2 g/dL (32.0-36.0); MEAN CORPUSCULAR VOLUME 84 fl (80-97); MONOCYTES % (AUTO) 8.8 % (3-13); PLATELET COUNT 200 10^3/uL (150-450); RED CELL DISTRIBUTION WIDTH 14.4 % (11.5-14.0); SEGMENTED NEUTROPHILS % (AUTO) 45.4 % (42-78); TOTAL CELLS COUNTED % (AUTO) 100 %; WHITE BLOOD COUNT 7.6 10^3/uL (4.0-10.5)
[2019-10-28 08:50] LABS: ALBUMIN 4.6 g/dL (3.5-5.0); ALKALINE PHOSPHATASE 101 U/L (38-126); ANION GAP 10 (5-19); ASPARTATE AMINO TRANSFERASE 30 U/L (14-36); BILIRUBIN,DIRECT 0.1 mg/dL (0.0-0.4); BILIRUBIN,TOTAL 0.5 mg/dL (0.2-1.3); BLOOD UREA NITROGEN 19 mg/dL (7-20); CALCIUM 9.9 mg/dL (8.4-10.2); CARBON DIOXIDE 29 mmol/L (22-30); CHLORIDE 103 mmol/L (98-107); CHOLESTEROL 293.18 mg/dL (0-200); GLUCOSE 88 mg/dL (75-110); TRIGLYCERIDES 103 mg/dL (<150); URIC ACID 4.3 mg/dL (2.5-7.5)
[2019-10-28 09:00] LABS: DIRECT LDL 167 mg/dL (<100)
[2019-10-28 09:02] LABS: FREE T4 (FREE THYROXINE) 1.01 ng/dL (0.78-2.19)
[2019-10-28 09:04] LABS: POTASSIUM 4.5 mmol/L (3.6-5.0)
[2019-10-28 09:16] LABS: THYROID STIMULATING HORMONE 2.03 uIU/mL (0.47-4.68)
--- NOTE | 2019-10-28 11:53 | RADIOLOGY REPORT (SQ) ---
EXAM DESCRIPTION: L SPINE 2 VIEWS COMPLETED DATE/TIME: 10/28/2019 8:09 am REASON FOR STUDY: UNSPECIFIED OA (M19.90) M19.90 UNSPECIFIED OSTEOARTHRITIS, UNSPECIFIED SITE COMPARISON: Sacrum and coccyx same date Hip films same date CT abdomen pelvis 04/26/2019 NUMBER OF VIEWS: Two views. TECHNIQUE: AP and lateral radiographic images acquired of the lumbar spine. LIMITATIONS: None. FINDINGS: MINERALIZATION: Normal. SEGMENTATION: Normal. No transitional anatomy. ALIGNMENT: 25% anterolisthesis of L5 over S1, related to advanced facet arthropathy rather than spond ylolysis VERTEBRAE: Maintained height. No fracture or worrisome bone lesion. DISCS: Disc space loss of height at L3-4 and L5-S1 POSTERIOR ELEMENTS: Pedicles and facets are intact. No pars defect or posterior arch defects. Advan kailey bilateral facet arthropathy at L5-S1 HARDWARE: None in the spine. PARASPINAL SOFT TISSUES: Normal. PELVIS: SI joints intact OTHER: No other significant finding. IMPRESSION: Degenerative changes most pronounced at L3-4 and L5-S1 TECHNICAL DOCUMENTATION: JOB ID: [id number]- All Rights Reserved Reading location - IP/workstation name: [email or web address]
--- NOTE | 2019-10-28 11:56 | RADIOLOGY REPORT (SQ) ---
EXAM DESCRIPTION: SACRUM AND COCCYX COMPLETED DATE/TIME: 10/28/2019 8:09 am REASON FOR STUDY: UNSPECIFIED OA (M19.90) M19.90 UNSPECIFIED OSTEOARTHRITIS, UNSPECIFIED SITE COMPARISON: Lumbar spine films same date Pelvis films same date NUMBER OF VIEWS: Three views. TECHNIQUE: AP, lateral, and tilt views of the sacrum and coccyx. LIMITATIONS: None. FINDINGS: MINERALIZATION: Normal. BONES: No acute fracture or dislocation. No lytic or blastic lesions. Advanced bilateral facet arth ropathy at L5-S1 with grade 1 25% anterolisthesis of L5 over S1 SOFT TISSUES: No soft tissue swelling. No foreign body. OTHER: No other significant finding. IMPRESSION: No acute fracture or malalignment. SI joints intact. TECHNICAL DOCUMENTATION: JOB ID: [id number]- All Rights Reserved Reading location - IP/workstation name: [email or web address]
--- NOTE | 2019-10-28 11:57 | RADIOLOGY REPORT (SQ) ---
EXAM DESCRIPTION: HIP BILATERAL COMPLETED DATE/TIME: 10/28/2019 8:09 am REASON FOR STUDY: UNSPECIFIED OA (M19.90) M19.90 UNSPECIFIED OSTEOARTHRITIS, UNSPECIFIED SITE COMPARISON: Lumbar spine films, pelvis films same date NUMBER OF VIEWS: Two views. TECHNIQUE: AP pelvis and additional frog-leg view of the right and left hip. LIMITATIONS: None. FINDINGS: MINERALIZATION: Normal. RIGHT HIP: No fracture or dislocation. No worrisome bone lesions. No significant joint space narrow ing or bony spurring. LEFT HIP: No fracture or dislocation. No worrisome bone lesions. No significant joint space narrowi ng or bony spurring. PUBIS AND ISCHIUM: No fracture. PELVIS: No fracture. SI joints intact. SACRUM: No fracture or dislocation. No worrisome bone lesions. SOFT TISSUES: No findings. OTHER: No other significant finding. IMPRESSION: Unremarkable radiographs of the pelvis and hips TECHNICAL DOCUMENTATION: JOB ID: [id number] [email or web address]- All Rights Reserved Reading location - IP/workstation name: [email or web address]
== END ==
LOC: RAD 07:08
DX: M19.90 Unspecified osteoarthritis, unspecified site (principal); R63.4 Abnormal weight loss
CPT/HCPCS: 36415; 72100; 72220; 73522; 80053; 80061; 83036; 84439; 84443; 84550; 85025

== ENCOUNTER 2020-03-02 06:44 | Emergency (ER) | payer SELFPAY ==
[2020-03-02 06:49] VITALS: BP 146/97
[2020-03-02] MEDS ORDERED: HYDROCODONE/ACETAMINOPHEN 5-325 MG (6 TAB/ER DISP) PO PRN (07:29)
[2020-03-02] MEDS ORDERED: LIDOCAINE 2% VISCOUS SOLN 15 ML UDCUP PO ONE (07:29)
[2020-03-02] MEDS ORDERED: PENICILLIN V POTASSIUM 500 MG TABLET PO ONE (07:30)
--- NOTE | 2020-03-02 07:31 | ER Document Report ---
HPI - HPI Patient complains to provider of: toothache Time Seen by Provider: 03/02/20 07:18 Context: 59-year-old female with hypertension presents to the emergency department with a toothache present for the last 4 days. Patient states that her upper right she was able to express some pus out of it. She says she cannot tolerate the pain. She denies fevers or chills. She denies any difficulty swallowing, denies any trismus, denies any neck stiffness. Patient does not have a dentist. - REPRODUCTIVE Reproductive: DENIES: : Past Medical History - Social History Smoking Status: Current Every Day Smoker Family History: DM, Hypertension - Past Medical History Cardiac Medical History: Reports: Hx Hypertension Pulmonary Medical History: Reports: Hx COPD Renal/ Medical History: Reports: Hx Kidney Stones. Denies: Hx Peritoneal Dialysis GI Medical History: Reports: Hx Gastroesophageal Reflux Disease Musculoskeletal Medical History: Reports Hx Arthritis, Reports Hx Musculoskeletal Deformity, Reports Hx Musculoskeletal Trauma Psychiatric Medical History: Reports: Hx Depression Past Surgical History: Reports: Hx Appendectomy, Hx Hysterectomy - Immunizations Hx Diphtheria, Pertussis, Tetanus Vaccination: Yes Hx Pneumococcal Vaccination: 11/22/14 Vertical Provider Document - CONSTITUTIONAL Notes: PHYSICAL EXAMINATION: Reviewed vital signs and charting by RN GENERAL: Alert, interacts well. No acute distress. HEAD: Normocephalic, atraumatic. EYES: Pupils equal and round. Extraocular movements intact. ENT: Oral mucosa moist, tongue midline. Acute tenderness to palpation over the gingiva on the buccal side of the numbers 2 and 3 teeth. No purulent discharge seen, no area of fluctuance. No evidence of cellulitis or Jaquan angina on the floor of the mouth NECK: Full range of motion. Trachea midline. EXTREMITIES: Moves all 4 extremities spontaneously. No edema, No cyanosis. PSYCH: Normal affect, normal mood. SKIN: Warm, dry, normal turgor. No rashes or lesions noted. - INFECTION CONTROL TRAVEL OUTSIDE OF THE [place] IN LAST 30 DAYS: No Course - Re-evaluation Re-evalutation: 03/02/20 07:28 Presentation is most consistent with likely an infected tooth. Airway is patent. Vitals within normal limits. Patient is able swallow without any difficulty. There is no significant facial swelling. No evidence of Jaquan angina, apical abscess, or airway obstruction. Patient will be started on antibiotics. I've instructed to follow-up with dentistry as earliest ability for definitive management. At this time will discharge with return precautions and follow-up recommendations. Patient will also be placed on a one-week course of antibiotics. Verbal discharge instructions given a the bedside and opportunity for questions given. Medication warnings reviewed. Patient is in agreement with this plan and has verbalized understanding of return precautions and the need for primary care follow-up in the next 24-72 hours. - Vital Signs Vital signs: Temp Pulse Resp BP Pulse Ox 98.8 F 59 L 20 146/97 H 96 03/02/20 06:48 03/02/20 06:48 03/02/20 06:48 03/02/20 06:48 03/02/20 06:48 Discharge - Discharge Clinical Impression: Toothache, Dental infection Condition: Good Disposition: HOME, SELF-CARE Additional Instructions: You have been seen for dental pain. It is very important that you follow-up with a dentist for definitive care. Please return if you develop fever greater than 101, swelling in your face, vomiting, difficulty breathing or swallowing, or any other symptoms that are concerning to you. For pain you should take ibuprofen 600 mg every 6 hours as needed and/or Tylenol 1000 mg every 6 hours as needed. You have also been prescribed a one-week course of penicillin that you should take every 6 hours 4 times per day.
== END 2020-03-02 07:41 | disposition home or self-care (01) ==
LOC: ER 06:44
DX: K04.7 Periapical abscess without sinus (principal); K08.89 Other specified disorders of teeth and supporting structures; F17.200 Nicotine dependence, unspecified, uncomplicated; I10 Essential (primary) hypertension; J44.9 Chronic obstructive pulmonary disease, unspecified
CPT/HCPCS: 99282; J3490

== ENCOUNTER → 2020-03-07 | Outpatient (CLI) | payer OTHER ==
[2020-03-07 08:59] LABS: ABSOLUTE EOSINOPHILS # (AUTO) 0.2 10^3/uL (0.0-0.6); ABSOLUTE LYMPHOCYTES (AUTO) 2.7 10^3/uL (0.5-4.7); ABSOLUTE MONOCYTES (AUTO) 0.3 10^3/uL (0.1-1.4); ABSOLUTE NEUT (AUTO) 3.6 10^3/uL (1.7-8.2); BASOPHILS % (AUTO) 0.6 % (0-2); EOSINOPHILS % (AUTO) 2.3 % (0-6); HEMATOCRIT 38.2 % (36.0-47.0); LYMPHOCYTES % (AUTO) 40.3 % (13-45); MEAN CORPUSCULAR HEMOGLOBIN 28.6 pg (27.0-33.4); MEAN CORPUSCULAR HGB CONC 34.1 g/dL (32.0-36.0); MEAN CORPUSCULAR VOLUME 84 fl (80-97); MONOCYTES % (AUTO) 4.7 % (3-13); PLATELET COUNT 207 10^3/uL (150-450); RED BLOOD COUNT 4.55 10^6/uL (3.72-5.28); RED CELL DISTRIBUTION WIDTH 14.2 % (11.5-14.0); SEGMENTED NEUTROPHILS % (AUTO) 52.1 % (42-78); TOTAL CELLS COUNTED % (AUTO) 100 %; WHITE BLOOD COUNT 6.8 10^3/uL (4.0-10.5)
[2020-03-07 09:20] LABS: ALKALINE PHOSPHATASE 121 U/L (38-126); ASPARTATE AMINO TRANSFERASE 37 U/L (14-36); BILIRUBIN,TOTAL 0.3 mg/dL (0.2-1.3); TOTAL PROTEIN 8.4 g/dL (6.3-8.2)
[2020-03-07 09:36] LABS: ERYTHROCYTE SEDIMENTATION RATE 24 mm/hr (0-30)
--- NOTE | 2020-03-07 10:03 | RADIOLOGY REPORT (SQ) ---
EXAM DESCRIPTION: HAND BILATERAL 2 VIEWS IMAGES COMPLETED DATE/TIME: 03/07/2020 8:49 am REASON FOR STUDY: UNSPECIFIED OSTEOARTHRITIS, UNSPECIFIED SITE M19.90 UNSPECIFIED OSTEOARTHRITIS, U NSPECIFIED SITE E78.5 HYPERLIPIDEMIA, UNSPECIFIED COMPARISON: None. EXAM PARAMETERS: NUMBER OF VIEWS: Two views right hand. Two views left hand. TECHNIQUE: AP and lateral radiographic images acquired of bilateral hands. LIMITATIONS: None. FINDINGS: RIGHT HAND: MINERALIZATION: Normal. BONES: No acute fracture or dislocation. No worrisome bone lesions. No significant osteophytes. JOINTS: No erosions. No dean-articular osteopenia. No chondrocalcinosis. SOFT TISSUES: No swelling. No calcifications. OTHER: No other significant finding. LEFT HAND: MINERALIZATION: Normal. BONES: No acute fracture or dislocation. No worrisome bone lesions. No significant osteophytes. JOINTS: No erosions. No dean-articular osteopenia. No chondrocalcinosis. SOFT TISSUES: No swelling. No calcifications. OTHER: No other significant finding. IMPRESSION: NEGATIVE STUDY BILATERAL HANDS. NO ACUTE POST-TRAUMATIC CHANGES. NO EXPLANATION FOR PAIN . TECHNICAL DOCUMENTATION: JOB ID: [id number] [employer]- All Rights Reserved Reading location - IP/workstation name: [email or web address]
== END ==
LOC: CCC 08:11
PROVIDERS: ATTEND Family Medicine
DX: M19.90 Unspecified osteoarthritis, unspecified site (principal); E78.5 Hyperlipidemia, unspecified
CPT/HCPCS: 36415; 80076; 85025; 85652; 86038; 86431; 86900; 86901

== ENCOUNTER 2020-03-23 08:42 | Emergency (ER) | payer OTHER ==
[2020-03-23 08:47] VITALS: BP 149/80
--- NOTE | 2020-03-23 09:36 | ER Document Report ---
HPI - HPI Time Seen by Provider: 03/23/20 09:31 Pain Level: Denies Context: CHIEF COMPLAINT: Painful rash left lower chest wall for 4 days HPI: 59-year-old female with history of shingles presenting for evaluation of a painful rash to the left lower chest wall over the last 4 days. No fever. Patient states she had shingles last year and this is the same type of rash. No fever. Denies history of diabetes. ROS: See HPI - all other systems were reviewed and are otherwise negative Constitutional: no fever Integumentary: + rash Allergy: no hives Neurological: no numbness/tingling, no weakness MEDICATIONS: I agree with the patient medications as charted by the RN. ALLERGIES: I agree with the allergies as charted by the RN. PAST MEDICAL HISTORY/PAST SURGICAL HISTORY: Reviewed and agree as charted by RN. SOCIAL HISTORY: Reviewed and agree as charted by RN. FAMILY HISTORY: No significant familial comorbid conditions directly related to patient complaint EXAM: Reviewed vital signs as charted by RN. CONSTITUTIONAL: Alert and oriented and responds appropriately to questions. Well-appearing; well-nourished, mild distress secondary to discomfort HEAD: Normocephalic; atraumatic EYES: conjunctivae clear, sclerae non-icteric ENT: normal nose; no rhinorrhea; moist mucous membranes NECK: Supple without meningismus CARD: symmetric distal pulses RESP: Normal chest excursion without splinting or tachypnea ABD/GI: non-distended BACK: The back appears normal EXT: Normal ROM in all joints; non-tender to palpation; no cyanosis, no effusions, no edema SKIN: Normal color for age and race; warm; dry; good turgor; several areas of grouped raised vesicular lesions along the left posterior lower chest wall and rib cage region. No cellulitic change NEURO: Moves all extremities equally; Motor and sensory function intact PSYCH: The patient's mood and manner are appropriate. Grooming and personal hygiene are appropriate. MDM: 59-year-old female with shingles to the left lower chest wall posterior. She is starting to get outside of the timeframe for effectiveness of antivirals but patient does request them. Will place her on Valtrex, prednisone, lidocaine patches, Percocet for pain, follow-up PCP - REPRODUCTIVE Reproductive: DENIES: : Past Medical History - Social History Smoking Status: Current Every Day Smoker Chew tobacco use (# tins/day): No Frequency of alcohol use: Occasional Drug Abuse: Marijuana Family History: DM, Hypertension Patient has homicidal ideation: No - Past Medical History Cardiac Medical History: Reports: Hx Hypertension Pulmonary Medical History: Reports: Hx COPD Renal/ Medical History: Reports: Hx Kidney Stones. Denies: Hx Peritoneal Dialysis GI Medical History: Reports: Hx Gastroesophageal Reflux Disease Musculoskeletal Medical History: Reports Hx Arthritis, Reports Hx Musculoskeletal Deformity, Reports Hx Musculoskeletal Trauma Psychiatric Medical History: Reports: Hx Depression Past Surgical History: Reports: Hx Appendectomy, Hx Hysterectomy - Immunizations Hx Diphtheria, Pertussis, Tetanus Vaccination: Yes Hx Pneumococcal Vaccination: 11/22/14 Vertical Provider Document - INFECTION CONTROL TRAVEL OUTSIDE OF THE [place] IN LAST 30 DAYS: No Course - Vital Signs Vital signs: Temp Pulse Resp BP Pulse Ox 98.5 F 59 L 16 149/80 H 100 03/23/20 09:23 03/23/20 08:46 03/23/20 08:46 03/23/20 08:46 03/23/20 08:46 Discharge - Discharge Clinical Impression: Shingles Qualifiers: Herpes zoster complications: without complications Qualified Code(s): B02.9 - Zoster without complications Condition: Stable Disposition: HOME, SELF-CARE Additional Instructions: Take the Percocet for pain, do not drive if taking Percocet for pain. Apply the lidocaine patches to help with discomfort as directed. Discuss application method with the pharmacist when you berry picker the patches. Follow-up with your primary care provider in 2-3 days for recheck and reevaluation call to obtain appointment. Stay away from contact with elderly, very young, women, or those people who are immunocompromised such as those with HIV or cancer who are undergoing treatment Prescriptions: Prednisone [Deltasone 20 mg Tablet] 2 tab PO DAILY 5 Days #10 tablet Lidocaine [Lidoderm 5% (700 mg) Transdermal Patch] 1 patch TP BID #20 adh..patch Oxycodone HCl/Acetaminophen [Percocet 5-325 mg Tablet] 1 tab PO Q4H PRN #15 tab PRN Reason: Valacyclovir HCl [Valtrex] 1,000 mg PO TID #21 tablet Referrals: NORMA LOPEZ MD [ACTIVE STAFF] - Follow up as needed
== END 2020-03-23 09:39 | disposition home or self-care (01) ==
LOC: ER 08:42
DX: B02.9 Zoster without complications (principal); F17.200 Nicotine dependence, unspecified, uncomplicated; I10 Essential (primary) hypertension; J44.9 Chronic obstructive pulmonary disease, unspecified; F12.10 Cannabis abuse, uncomplicated; K21.9 Gastro-esophageal reflux disease without esophagitis; Z79.899 Other long term (current) drug therapy; Z79.82 Long term (current) use of aspirin
CPT/HCPCS: 99282

== ENCOUNTER 2020-09-20 07:00 | Emergency (ER) | payer SELFPAY ==
[2020-09-20 07:22] VITALS: BP 125/74
--- NOTE | 2020-09-20 08:14 | RADIOLOGY REPORT (SQ) ---
EXAM DESCRIPTION: CHEST 2 VIEWS IMAGES COMPLETED DATE/TIME: 09/20/2020 8:05 am REASON FOR STUDY: chest pain COMPARISON: 12/14/2018 EXAM PARAMETERS: NUMBER OF VIEWS: two views TECHNIQUE: Digital Frontal and Lateral radiographic views of the chest acquired. RADIATION DOSE: NA LIMITATIONS: none FINDINGS: LUNGS AND PLEURA: No opacities, masses or pneumothorax. No pleural effusion. MEDIASTINUM AND HILAR STRUCTURES: No masses or contour abnormalities. HEART AND VASCULAR STRUCTURES: Heart normal size. No evidence for failure. BONES: No acute findings. HARDWARE: None in the chest. OTHER: No other significant finding. IMPRESSION: NO ACUTE RADIOGRAPHIC FINDING IN THE CHEST. TECHNICAL DOCUMENTATION: JOB ID: [id number] [employer] All Rights Reserved Reading location - IP/workstation name: [email or web address]
[2020-09-20] MEDS ORDERED: ASPIRIN 81 MG TABLET, CHEWABLE PO ONE (09:31)
--- NOTE | 2020-09-20 09:33 | ER Document Report ---
ED Medical Screen (RME) - General Chief Complaint: Chest Pain Stated Complaint: CHEST PAINS SHORT OF BREATH Time Seen by Provider: 09/20/20 09:27 Notes: HPI: 59-year-old female presenting with sharp stabbing left chest pain under the left breast now with some radiation into the left shoulder with mild shortness of breath and discomfort when she takes a deep breath then that began around 7 AM this morning. No history of similar discomfort. Patient states that she had seen a ham pumper about 4 years ago did have a stress test that was normal does not follow with cardiology currently. No fever nausea or vomiting no abdominal pain. PHYSICAL EXAMINATION: No reproducible pain on palpation of the anterior chest wall lung sounds are clear to auscultation with regular rate and rhythm noted I have greeted and performed a rapid initial assessment of this patient. A comprehensive ED assessment and evaluation of the patient, analysis of test results and completion of medical decision making process will be conducted by an additional ED providers. TRAVEL OUTSIDE OF THE [place] IN LAST 30 DAYS: No - Related Data Allergies/Adverse Reactions: ibuprofen Adverse Reaction (Verified 09/20/20 07:38) Home Medications: omeprazole Past Medical History - Social History Chew tobacco use (# tins/day): No Frequency of alcohol use: Occasional Drug Abuse: Marijuana - Past Medical History Cardiac Medical History: Reports: Hx Hypertension Pulmonary Medical History: Reports: Hx COPD Renal/ Medical History: Reports: Hx Kidney Stones. Denies: Hx Peritoneal Dialysis GI Medical History: Reports: Hx Gastroesophageal Reflux Disease Musculoskeltal Medical History: Reports Hx Arthritis, Reports Hx Musculoskeletal Deformity, Reports Hx Musculoskeletal Trauma Psychiatric Medical History: Reports: Hx Depression Past Surgical History: Reports: Hx Appendectomy, Hx Hysterectomy - Immunizations Hx Diphtheria, Pertussis, Tetanus Vaccination: Yes Physical Exam - Vital signs Vitals: Temp Pulse Resp BP Pulse Ox 98.7 F 54 L 17 125/74 100 09/20/20 07:18 09/20/20 07:18 09/20/20 07:18 09/20/20 07:18 09/20/20 07:18 Course - Vital Signs Vital signs: Temp Pulse Resp BP Pulse Ox 98.7 F 54 L 17 125/74 100 09/20/20 07:38 09/20/20 07:18 09/20/20 07:18 09/20/20 07:18 09/20/20 07:18
--- NOTE | 2020-09-20 18:00 | EKG REPORT ---
SEVERITY:- NORMAL ECG - SINUS RHYTHM : Confirmed by: Dionna Brunson 20-Sep-2020 18:00:22
== END 2020-09-20 11:15 | disposition left against medical advice (07) ==
LOC: ER 07:00
DX: R07.9 Chest pain, unspecified (principal); R06.02 Shortness of breath; K21.9 Gastro-esophageal reflux disease without esophagitis; I10 Essential (primary) hypertension; J44.9 Chronic obstructive pulmonary disease, unspecified; Z79.899 Other long term (current) drug therapy; Z53.20 Procedure and treatment not carried out because of patient's decision for unspecified reasons
CPT/HCPCS: 71046; 93005; 93010; 99281

== ENCOUNTER 2020-09-21 02:04 | Emergency (ER) | payer SELFPAY ==
--- NOTE | 2020-09-21 03:21 | ER Document Report ---
ED Medical Screen (RME) - General Chief Complaint: Shortness Of Breath Stated Complaint: LOSS OF TASTE/CHEST TIGHTNESS Time Seen by Provider: 09/21/20 03:08 Notes: 59-year-old female with chief complaint of left upper abdominal pain and left-sided chest pain over the past 2 days. Patient reports she has symptoms that are worse with deep breath and movement as well. Denies injury, fever, cough, or current pain. She reports she had nausea before but denies nausea now, denies vomiting. TRAVEL OUTSIDE OF THE [place] IN LAST 30 DAYS: No - Related Data Allergies/Adverse Reactions: ibuprofen Adverse Reaction (Verified 09/20/20 07:38) Home Medications: omeprazole, asa, Past Medical History - Past Medical History Cardiac Medical History: Reports: Hx Hypertension Pulmonary Medical History: Reports: Hx COPD Renal/ Medical History: Reports: Hx Kidney Stones. Denies: Hx Peritoneal Dialysis GI Medical History: Reports: Hx Gastroesophageal Reflux Disease Musculoskeltal Medical History: Reports Hx Arthritis, Reports Hx Musculoskeletal Deformity, Reports Hx Musculoskeletal Trauma Psychiatric Medical History: Reports: Hx Depression Past Surgical History: Reports: Hx Appendectomy, Hx Hysterectomy - Immunizations Hx Diphtheria, Pertussis, Tetanus Vaccination: Yes Physical Exam - Vital signs Vitals: Temp Pulse Resp BP Pulse Ox 98.4 F 52 L 20 162/83 H 100 09/21/20 02:10 09/21/20 02:10 09/21/20 02:10 09/21/20 02:10 09/21/20 02:10 - Respiratory Chest status: Tender - There is reproducible tenderness over the left anterior chest wall at approximately the fourth intercostal space, this is specific and reproducible - Abdominal Tenderness: Tender - Mildly tender in the left upper quadrant and epigastric area, remaining abdomen unremarkable Course - Re-evaluation Re-evalutation: I have greeted and performed a rapid initial assessment of this patient. A comprehensive ED assessment and evaluation of the patient, analysis of test results and completion of the medical decision making process will be conducted by additional ED providers. - Vital Signs Vital signs: Temp Pulse Resp BP Pulse Ox 98.4 F 52 L 20 162/83 H 100 09/21/20 02:10 09/21/20 02:10 09/21/20 02:10 09/21/20 02:10 09/21/20 02:10
[2020-09-21 04:13] LABS: ABSOLUTE EOSINOPHILS # (AUTO) 0.2 10^3/uL (0.0-0.6); ABSOLUTE LYMPHOCYTES (AUTO) 2.4 10^3/uL (0.5-4.7); ABSOLUTE MONOCYTES (AUTO) 0.4 10^3/uL (0.1-1.4); ABSOLUTE NEUT (AUTO) 2.7 10^3/uL (1.7-8.2); BASOPHILS % (AUTO) 0.5 % (0-2); EOSINOPHILS % (AUTO) 3.9 % (0-6); HEMOGLOBIN 11.8 g/dL (12.0-15.5); LYMPHOCYTES % (AUTO) 40.8 % (13-45); MEAN CORPUSCULAR HEMOGLOBIN 29.2 pg (27.0-33.4); MEAN CORPUSCULAR HGB CONC 34.8 g/dL (32.0-36.0); MEAN CORPUSCULAR VOLUME 84 fl (80-97); MONOCYTES % (AUTO) 7.3 % (3-13); PLATELET COUNT 208 10^3/uL (150-450); RED BLOOD COUNT 4.04 10^6/uL (3.72-5.28); RED CELL DISTRIBUTION WIDTH 14.6 % (11.5-14.0); SEGMENTED NEUTROPHILS % (AUTO) 47.5 % (42-78); TOTAL CELLS COUNTED % (AUTO) 100 %; WHITE BLOOD COUNT 5.8 10^3/uL (4.0-10.5)
[2020-09-21 04:28] LABS: ALKALINE PHOSPHATASE 104 U/L (38-126); ANION GAP 9 (5-19); ASPARTATE AMINO TRANSFERASE 26 U/L (14-36); BILIRUBIN,DIRECT 0.1 mg/dL (0.0-0.4); BILIRUBIN,TOTAL 0.4 mg/dL (0.2-1.3); BLOOD UREA NITROGEN 17 mg/dL (7-20); CALCIUM 9.2 mg/dL (8.4-10.2); CARBON DIOXIDE 24 mmol/L (22-30); CHLORIDE 106 mmol/L (98-107); GLUCOSE 116 mg/dL (75-110); POTASSIUM 4.1 mmol/L (3.6-5.0)
--- NOTE | 2020-09-21 04:38 | RADIOLOGY REPORT (SQ) ---
EXAM DESCRIPTION: XR CHEST 1 VIEW COMPLETED DATE/TME: 09/21/2020 03:46 CLINICAL HISTORY: chest pain COMPARISON: 09/20/2019 FINDINGS: Single frontal radiograph view of the chest. Cardiomediastinal silhouette: Normal size and contour. Lungs: No consolidation, pneumothorax, or pleural effusion. Bones: No acute osseous abnormality. Upper abdomen: No abnormality identified. IMPRESSION: 1. No acute pulmonary process identified.
[2020-09-21 05:32] VITALS: BP 121/54
--- NOTE | 2020-09-22 00:34 | EKG REPORT ---
SEVERITY:- OTHERWISE NORMAL ECG - SINUS BRADYCARDIA : Confirmed by: Dionna Brunson 22-Sep-2020 00:33:45
--- OUTSIDE RECORDS SUMMARY | 2020-09-22 15:03 | XMS REPORT ---
:1960 [facility] [address] [place] [id number] Care Team Providers Name Role Phone Chas Attending Clinician Unavailable Mark Attending Clinician Unavailable Allergies, Adverse Reactions, Alerts This patient has no known allergies or adverse reactions. Medications This patient has no known medications. Problems This patient has no known problems. Procedures Procedure Date / Time Performed Performing Clinician Devic e OFFICE OUTPATIENT VISIT 15 MINUTES 2017-12-11 11:35:00 OFFICE OUTPATIENT VISIT 15 MINUTES 2017-11-27 11:33:00 LUMBAR SPINE, COMPLETE ([id number]) 2017-11-21 10:03:00 HIP, TWO VIEWS ([id number]) 2017-11-20 17:04:00 OFFICE OUTPATIENT VISIT 15 MINUTES 2017-11-18 10:45:00 OFFICE OUTPATIENT VISIT 15 MINUTES 2017-11-14 09:40:00 OFFICE OUTPATIENT VISIT 25 MINUTES 2017-10-23 13:01:00 INJECTION, CEFTRIAXONE SODIUM: 2017-09-05 11:36:00 CEFTRIAXONE SODIUM 1 GRAM ([id number]) OFFICE OUTPATIENT VISIT 15 MINUTES 2017-09-05 11:09:00 OFFICE OUTPATIENT VISIT 15 MINUTES 2017-08-26 11:02:00 INJECTION, CEFTRIAXONE SODIUM: 2017-08-11 15:56:00 CEFTRIAXONE SODIUM 500 MILLIGRAM ([id number]) OFFICE OUTPATIENT VISIT 15 MINUTES 2017-08-11 15:37:00 OFFICE OUTPATIENT VISIT 15 MINUTES 2017-06-10 13:44:00 Results Test Description Test Time Test Comments Text Results Atomic Results Result Comments [facility] ([id number]) ([id number]) 2017-10-27 00:00:00 Test Item Value Reference Range Comments eGFR If Africn Am (test code = 27764-7) 115 mL/min/1.73 >59 Chloride, Serum (test code = 2075-0) 102 mmol/L 96-106 Potassium, Serum (test code = 2823-3) 4.0 mmol/L 3.5-5.2 AST (SGOT) (test code = 1920-8) 20 IU/L 0-40 BUN/Creatinine Ratio (test code = 3097-3) 29 9-23 Globulin, Total (test code = 51324-0) 2.5 g/dL 1.5-4.5 Carbon Dioxide, Total (test code = 2028-9) 25 mmol/L 18-29 eGFR If NonAfricn Am (test code = 79300-649) 100 mL/min/1.73 >59 Albumin, Serum (test code = 1751-7) 4.6 g/dL 3.5-5.5 Bilirubin, Total (test code = 1975-2) <0.2 mg/dL 0.0-1.2 Protein, Total, Serum (test code = 2885-2) 7.1 g/dL 6.0-8 .5 Sodium, Serum (test code = 2951-2) 142 mmol/L 134-144 Alkaline Phosphatase, S (test code = 6768-6) 110 IU/L 39- 117 ALT (SGPT) (test code = 1742-6) 19 IU/L 0-32 Glucose, Serum (test code = 2345-7) 84 mg/dL 65-99 Calcium, Serum (test code = 76828-0) 9.7 mg/dL 8.7-10.2 A/G Ratio (test code = 1759-0) 1.8 1.2-2.2 BUN (test code = 3094-0) 18 mg/dL 6-24 Creatinine, Serum (test code = 2160-0) 0.62 mg/dL 0.57-1.00 Hgb A1c with eAG Estimation ([id number]) ([id number])2017-10-27 00:00:00 Test Item Value Reference Range Comments Hemoglobin A1c (test code = 4548-4) 5.5 % 4.8-5.6 Estim. Avg Glu (eAG) (test code = 92650-9) 111 mg/dL Lipid Panel ([id number]) ([id number])2017-10-27 00:00:00 Test Item Value Reference Range Comments VLDL Cholesterol Kale (test code = 28143-7) 27 mg/dL 5-40 Cholesterol, Total (test code = 2093-3) 231 mg/dL 100-199 LDL Cholesterol Calc (test code = 87357-7) 149 mg/dL 0-99 HDL Cholesterol (test code = 2085-9) 55 mg/dL >39 Triglycerides (test code = 2571-8) 134 mg/dL 0-149 Vitamin D 25-Hydroxy ([id number]) ([id number])2017-10-27 00:00:00 Test Item Value Reference Range Comments Vitamin D, 25-Hydroxy (test code = 71551-7) 14.8 ng/mL 30.0 -100.0 CBC With Differential/Platelet ([id number]) (97260)2017-10-27 00:00:00 Test Item Value Reference Range Comments Lymphs (Absolute) (test code = 731-0) 3.6 x10E3/uL 0.7-3.1 MCH (test code = 785-6) 27.4 pg 26.6-33.0 Eos (Absolute) (test code = 711-2) 0.4 x10E3/uL 0.0-0.4 Basos (test code = 706-2) 0 % Not Estab. RDW (test code = 788-0) 16.7 % 12.3-15.4 WBC (test code = 6690-2) 8.8 x10E3/uL 3.4-10.8 Neutrophils (Absolute) (test code = 751-8) 4.3 x10E3/uL 1.4-7 .0 Immature Grans (Abs) (test code = 91315-5) 0.0 x10E3/uL 0.0-0 .1 Immature Granulocytes (test code = 53250-4) 0 % Not Estab. RBC (test code = 789-8) 4.23 x10E6/uL 3.77-5.28 Baso (Absolute) (test code = 704-7) 0.0 x10E3/uL 0.0-0.2 Lymphs (test code = 736-9) 41 % Not Estab. Neutrophils (test code = 770-8) 49 % Not Estab. Monocytes (test code = 5905-5) 6 % Not Estab. Platelets (test code = 777-3) 239 x10E3/uL 150-379 MCHC (test code = 786-4) 32.2 g/dL 31.5-35.7 Eos (test code = 713-8) 4 % Not Estab. Monocytes(Absolute) (test code = 742-7) 0.5 x10E3/uL 0.1-0.9 MCV (test code = 787-2) 85 fL 79-97 Hemoglobin (test code = 718-7) 11.6 g/dL 11.1-15.9 Hematocrit (test code = 4544-3) 36.0 % 34.0-46.6 Vaginitis Plus (VG+), NuSwab ([id number]) ([id number])2017-10-27 00:00:00 Test Item Value Reference Range Comments Trich vag by NA (test code = 23128-6) Negative Negative Megasphaera 1 (test code = 04008-9) Low - 0 Score Neisseria gonorrhoeae, NA (test code = Negative Negative 02798-6) Marylin glabrata, NA (test code = 79658-9) Negative Nega tive Marylin albicans, NA (test code = 91601-1) Negative Nega tive BVAB 2 (test code = 16368-6) Low - 0 Score Atopobium vaginae (test code = 65559-7) Low - 0 Score Chlamydia trachomatis, NA (test code = Negative Negative 15744-2) Assessments Condition Name Status Diagnosis Date Treating Clinici an Encounter for health education Active Body mass index (BMI) of 24.0-24.9 in adult Active Tendinitis of right hip Active Tendinitis of right hip Active Degenerative disc disease at L5-S1 level Active Degenerative disc disease at L5-S1 level Active Encounter for health education Active Body mass index (BMI) of 25.0-25.9 in adult Active Body mass index (BMI) of 25.0-25.9 in adult Active Piriformis syndrome of left side Active Piriformis syndrome of left side Active Piriformis syndrome of left side Active Bite Active Bite Active Bite Active Bite Active Contusion of right hip region Active Contusion of right hip region Active Contusion of right hip region Active Contusion of right hip region Active Encounter for health education Active Body mass index (BMI) of 24.0-24.9 in adult Active Encounter for health education Active Body mass index (BMI) of 24.0-24.9 in adult Active Body mass index (BMI) of 24.0-24.9 in adult Active Vaginal discharge Active Breast cancer screening Active Adult general medical exam Active Vaginal discharge Active Breast cancer screening Active Adult general medical exam Active Vaginal discharge Active Breast cancer screening Active Adult general medical exam Active Vaginal discharge Active Breast cancer screening Active Adult general medical exam Active Vaginal discharge Active Breast cancer screening Active Adult general medical exam Active Body mass index (BMI) of 25.0-25.9 in adult Active Body mass index (BMI) of 25.0-25.9 in adult Active Encounter for health education Active Body mass index (BMI) of 25.0-25.9 in adult Active Dyspepsia Active Dyspepsia Active Dyspepsia Active Dyspepsia Active Dyspepsia Active Cellulitis of skin of back Active Cellulitis of skin of back Active Cellulitis of skin of back Active Cellulitis of skin of back Active Cellulitis of skin of back Active Cellulitis of skin of back Active Body mass index (BMI) of 25.0-25.9 in adult Active Insomnia Active Insomnia Active Insomnia Active Insomnia Active Insomnia Active Insomnia Active Insomnia Active Chronic low back pain Active Chronic low back pain Active Chronic low back pain Active Chronic low back pain Active Chronic low back pain Active Chronic low back pain Active Chronic low back pain Active Smoker Active Smoker Active Smoker Active Smoker Active Smoker Active Smoker Active Smoker Active Cellulitis, leg Active Cellulitis, leg Active Cellulitis, leg Active Cellulitis, leg Active Cellulitis, leg Active Cellulitis, leg Active Cellulitis, leg Active Cellulitis, leg Active Encounter for health education Active Body mass index (BMI) of 24.0-24.9 in adult Active Body mass index (BMI) of 24.0-24.9 in adult Active Encounter for health education Active Body mass index (BMI) of 24.0-24.9 in adult Active Encounter for health education Active Body mass index (BMI) of 24.0-24.9 in adult Active Marijuana smoker Active Marijuana smoker Active Marijuana smoker Active Marijuana smoker Active Marijuana smoker Active Marijuana smoker Active Marijuana smoker Active Marijuana smoker Active Marijuana smoker Active Hip pain, right Active Hip pain, right Active Hip pain, right Active Hip pain, right Active Hip pain, right Active Hip pain, right Active Hip pain, right Active Hip pain, right Active Hip pain, right Active Depression, acute Active Menopausal symptom Active Depression, acute Active Menopausal symptom Active Depression, acute Active Menopausal symptom Active Depression, acute Active Menopausal symptom Active Depression, acute Active Menopausal symptom Active Depression, acute Active Menopausal symptom Active Depression, acute Active Menopausal symptom Active Depression, acute Active Menopausal symptom Active Depression, acute Active Menopausal symptom Active Encounter for health education Active Body mass index (BMI) of 24.0-24.9 in adult Active SCREENING MAMMOGRAM NEC (V76.12) Active SCREENING MAMMOGRAM NEC (V76.12) Active SCREENING MAMMOGRAM NEC (V76.12) Active SCREENING MAMMOGRAM NEC (V76.12) Active SCREENING MAMMOGRAM NEC (V76.12) Active SCREENING MAMMOGRAM NEC (V76.12) Active SCREENING MAMMOGRAM NEC (V76.12) Active SCREENING MAMMOGRAM NEC (V76.12) Active SCREENING MAMMOGRAM NEC (V76.12) Active Encounter for routine gynecological Active examination Encounter for routine gynecological Active examination Encounter for routine gynecological Active examination Encounter for routine gynecological Active examination Encounter for routine gynecological Active examination Encounter for routine gynecological Active examination Encounter for routine gynecological Active examination Encounter for routine gynecological Active examination Encounter for routine gynecological Active examination Encounters Start End Encounter Admission Attending Care Care Encounter Date/Time Date/Time Type Type Clinicians Facility Department ID 2017-12-11 2017-12-11 [facility] [id number] 11:35:00 11:35:00 [facility] 2017-11-27 2017-11-27 [facility] [id number] 11:33:00 11:33:00 [facility] 2017-11-18 2017-11-18 [facility] [id number] 10:45:00 10:45:00 [facility] 2017-11-14 2017-11-14 [facility] [id number] 09:40:00 09:40:00 [facility] 2017-10-23 2017-10-23 Outpatient Mark [facility] [place] [id number] 13:01:00 13:01:00 [facility] 2017-09-05 2017-09-05 Outpatient Flores [facility] [place] [id number] 11:09:00 11:09:00 [facility] 2017-08-26 2017-08-26 Outpatient Chas [facility] [place] [id number] 11:02:00 11:02:00 [facility] 2017-08-11 2017-08-11 Outpatient Chas [facility] [place] [id number] 15:37:00 15:37:00 [facility] 2017-06-10 2017-06-10 Outpatient Chas [facility] [place] [id number] 13:44:00 13:44:00 [facility] Social History This patient has no known social history. Vital Signs This patient has no known vital signs.
== END 2020-09-21 10:44 | disposition left against medical advice (07) ==
LOC: ER 02:04
DX: R07.89 Other chest pain (principal); R10.12 Left upper quadrant pain; R10.812 Left upper quadrant abdominal tenderness; R10.816 Epigastric abdominal tenderness; I10 Essential (primary) hypertension; J44.9 Chronic obstructive pulmonary disease, unspecified; Z79.899 Other long term (current) drug therapy; Z79.82 Long term (current) use of aspirin; Z87.442 Personal history of urinary calculi; Z90.49 Acquired absence of other specified parts of digestive tract; Z90.710 Acquired absence of both cervix and uterus; Z53.20 Procedure and treatment not carried out because of patient's decision for unspecified reasons
CPT/HCPCS: 36415; 71045; 80053; 83690; 84484; 85025; 93005; 93010; 99281